=== PATIENT | female | born 1985 | race Caucasian/White ===

== ENCOUNTER 2021-11-30 09:01 | Emergency (ER) | payer OTHER, SELFPAY ==
[2021-11-30 09:11] VITALS: BP 135/80; PULSE 78; RESP 14; TEMP 36.8; O2SAT 100; BMI 25.0
--- NOTE | 2021-11-30 09:35 | HMH.EDUTC ---
[facility] [place] Clinical Impression: Viral syndrome Disposition: Home, Self-Care Condition on Discharge: Good Instructions: DI for Viral Syndrome, Preventing the Spread of Coronavirus Discharge Instructions, DI for COVID-19 (Suspected or Confirmed ) Additional Instructions: Drink plenty of fluids. Take tylenol or ibuprofen for pain or fever. Take the medications as directed. Follow up with your regular doctor. GO TO THE ER FOR ANY WORSENING SYMPTOMS Quarantine until you know the results of your covid-19 test. If it is positive, the health department should call you and give you further instructions about your length of Quarantine and other things. Notify your school or workplace of your results and follow their instructions regarding return to work/school. The promethazine will make you drowsy, so don't drive or operate heavy machinery after taking it. Prescriptions: Ondansetron [Zofran 4mg ODT] 4 mg PO Q8HP PRN #20 tab PRN Reason: Nausea Transmission Status: Pending to [id number] Promethazine HCl [Phenergan 25mg tab] 25 mg PO Q6H PRN #20 tab PRN Reason: Nausea And Vomiting Transmission Status: Pending to [id number] Referrals: Ileana Hewitt [Primary Care Provider] - Forms: Work/School Release Time of Disposition: 10:01 Medical Decision Making - Medical Records Medical records reviewed: No: I reviewed the patient's medical records. - Jomar Inquiry Pt receiving controlled substance: No Vital Signs: 11/30/21 09:11 Temperature 98.2 F Temperature Source Oral Pulse Rate [Left] 78 Respiratory Rate 14 Blood Pressure [Right Arm] 135/80 Blood Pressure Mean [Right Arm] 98 02 Sat by Pulse Oximetry 100 - Lab Data Lab results reviewed: Yes: I reviewed the patient's lab results. Lab Results 11/30/21 09:25: Influenza Type A Ag Negative, Influenza Type B Ag Negative 11/30/21 09:25: Strep Scn Rapid [facility] Negative Orders (Tests/Meds): ED MEDICATIONS Discontinued Medications Generic Name Dose Route Start Last Admin Trade Name Freq PRN Reason Stop Dose Admin Ondansetron HCl 4 mg 11/30/21 09:24 11/30/21 09:25 Ondansetron 4mg Odt SL 11/30/21 09:25 4 mg ONCE ONE Administration ORDERS Category Date Time Status Covid-19 Nasal PCR ([facility]) Routine Lab 11/30/21 09:25 Ordered Strep Screen Confirmation Stat Micro 11/30/21 09:25 Received [facility] [place] HPI - General Stated complaint: chills, vomiting, diarrhea, h/a, muscle/body pain Time Seen by Provider: 11/30/21 09:35 Mode of Arrival: Ambulatory Source of Information: Patient Limitations: No Limitations Description of Symptoms (Recalled from Triage Doc. by RN): pt c/o a migraine, n/v/d, and chills since yesterday. HEENT Symptoms (Recalled from RN notes): No Resp Symptoms (Recalled from RN notes): No Skin Symptoms (Recalled from RN notes): No MS Symptoms (Recalled from RN notes): No Functional Status (Recalled from RN notes): wnl - History of Present Illness Provider Complaint: She states that she started feeling bad last night. She has had body aches, n/v/d, and generally feeling bad. She is a type 1 diabetic. She denies shortness of breath or significant cough. She has been vaccinated against covid-19 and influenza. She is a preschool education director. - Related Data Previous Rx's Medication Instructions Recorded Ondansetron [Zofran 4mg ODT] 4 mg PO Q8HP PRN #20 tab 11/30/21 Promethazine HCl [Phenergan 25mg 25 mg PO Q6H PRN #20 tab 11/30/21 tab] Allergies Allergy/AdvReac Type Severity Reaction Status Date / Time Sulfa (Sulfonamide Allergy Verified 11/30/21 09:23 Antibiotics) - Worker's Comp Is this a Worker's Comp case?: No [facility] History - Hepatitis A Screen Drug use history?: No High risk sexual behaviors?: No History of sexually transmitted infection?: No Currently employed?: No Childcare worker?: No Do you have indoor plumbing?: Yes Do you have el
[2021-11-30 09:42] LABS: UTC Strep Screen (Rapid) Negative (Negative)
[2021-11-30 09:43] LABS: UTC Influenza A Antigen Negative (Negative); UTC Influenza B Antigen Negative (Negative)
[2021-11-30 09:48] VITALS: BP 135/80; PULSE 78; RESP 14; TEMP 36.8
== END 2021-11-30 10:09 | disposition home or self-care (01) ==
PROVIDERS: Emergency Provider Nurse Practitioner Family; PCP Nurse Practitioner Family
DX: B34.9 Viral infection, unspecified (principal); Z20.822 Contact with and (suspected) exposure to COVID-19; E10.9 Type 1 diabetes mellitus without complications
CPT/HCPCS: 87804; 87880; 96372; 99202; C9803; G0463; U0003; U0005

== ENCOUNTER 2024-09-30 11:43 | Emergency (ER) | payer OTHER, SELFPAY ==
[2024-09-30 11:59] VITALS: BP 122/61; PULSE 99; RESP 20; TEMP 36.8; O2SAT 100; BMI 25.0
[2024-09-30 12:07] LABS: Apearance,Urine Clear (Clear); Bilirubin,Urine Negative (Negative); Blood, Urine Negative (Negative); Color,Urine Yellow (Yellow); Glucose,Urine (UA) Negative (Negative); Ketones,Urine 160 (Negative); PH,Urine 7.5 (5.0-8.5); Protein,Urine 1+ (Negative); UTC Leukocyte Esterase,Urine 3+ (Negative); UTC Nitrate,Urine Positive (Negative); Urobilinogen,Urine 1 EU/dl (0.2)
--- NOTE | 2024-09-30 12:07 | EXP.UTC ---
Discharge Plan Disposition Patient Disposition: Home, Self-Care Condition: Good Prescriptions Prescriptions: New cefdinir 300 mg capsule 300 mg PO BID Qty: 20 0RF phenazopyridine [Pyridium] 200 mg tablet 200 mg PO Q8H 2 Days Qty: 6 0RF No Action levothyroxine [Synthroid] 175 mcg tablet 175 mcg PO DAILY Patient Comments: TAKE 1 TABLET BY MOUTH ONCE DAILY (DME) Omnipod 5 G6 Pods (Gen 5) Cartridge See Rx Instructions .ROUTE .MEDSUPPLY Qty: 5 Rx Instructions: As directed Referrals Follow up/Referrals: Neida Alfred APRN [Primary Care Provider] - See instructions Activity Restrictions/Add. Instructions Additional Instructions/Restrictions: *Increase fluids. Water not Soda or Tea *Start antibiotic immediately and be sure to take as ordered for the FULL length of time although you should start to see improvement over the next 48 hours *Pyridium as needed Remember this medication will turn your urine . This is normal but it will stain what ever it gets on *You should not use Pyridium for more than 48 hours. If so , follow up with your primary physician to review urine culture and ensure that antibiotic is adequate for infection *Be SURE to follow up anytime for new or worsening symptoms with your family doctor. AND in 48 hours for urine culture results with your family doctor, if you do not have a doctor then you may call back to the [facility] for urine culture results and further treatment. We do recommend that you choose and establish care with a Primary Care Physician. ?AND follow up with them ?in 10-14 days to repeat UA to ensure infection is resolved and blood no longer present *Be sure to let your PCP know that we sent urine cultures from the [facility] so they can follow up to ensure that you area the on the correct antibiotic Call your doctor office and make appointment for 48 hours (2 days from today) ?to follow up and get the results of your urine culture and further treatment Follow up with your Family Doctor for recheck of urine Straight to ER if any life threatening symptoms Clinical Impressions Clinical Impression: UTI (urinary tract infection) Instructions Patient Instructions: DI for Urinary Tract Infection (UTI), Cefdinir, Phenazopyridine Print Language Print Language: [place] Discharge ED Provider: Lila Anand [facility] [place] H[place] General Stated complaint: fever, body aches, cough Mode of Arrival: Ambulatory Source of Information: Patient Time Seen by Provider: 09/30/24 12:18 Description of Symptoms (Recalled from Triage Doc. by RN): FEVER, BODY ACHES, COUHG AND POSSIBLE UTI HEENT Symptoms (Recalled from RN notes): Yes Resp Symptoms (Recalled from RN notes): Yes Skin Symptoms (Recalled from RN notes): No MS Symptoms (Recalled from RN notes): No Functional Status (Recalled from RN notes): WNL History of Present Illness Provider Complaint: Patient states that she has been having a little cough, states 2 days ago she had an achy like feeling in her lower back area and then she started having some burning with urination States last night she felt a little feverish and she was worried that she may have a UTI Related Data Home Medications ?Medication ?Instructions ?Recorded ?Confirmed insulin pump cart,automated,BT #5 ea 12/17/23 09/30/24 (Omnipod 5 G6 Pods (Gen 5) subcutaneous cartridge) levothyroxine 175 mcg tablet 175 mcg PO DAILY 12/17/23 09/30/24 (Synthroid) Previous Rx's ?Medication ?Instructions ?Recorded cefdinir 300 mg capsule 300 mg PO BID #20 caps 09/30/24 phenazopyridine 200 mg tablet 200 mg PO Q8H pain 2 days #6 tabs 09/30/24 (Pyridium) Allergies Allergy/AdvReac Type Severity Reaction Status Date / Time Sulfa (Sulfonamide Allergy Verified 04/15/24 12:57 Antibiotics) Worker's Comp Is this a Worker's Comp case?: No [facility] Disclaimer: The information contained in this section may have been updated after the patient was seen, as this information can be updated by other users. Medical History (Updated 09/30/24 @ 12:45 by Lila Anand APRN) History of impacted cerumen Pharyngitis Surgical History H/O section H/O thyroidectomy Social History Smoking Status: Never smoker alcohol intake: never current occupational status: employed Travel in the last 8 weeks: None ROS Obtained: Yes All systems reviewed & no additional complaints except as documented and Yes Systems reviewed as appropriate & no additional complaints except as documented Constitutional Constitutional: Reports system reviewed and no additional complaints, except as documented, Reports as per HPI, Denies chills, Denies fatigue, Reports fever(s) and Denies headache(s) Eyes Eyes: Reports system reviewed and no additional complaints, except as documented and Reports as per HPI ENT Ears, Nose, Mouth, and Throat: Reports system reviewed and no additional complaints, except as documented, Reports as per HPI and Denies headache(s) Cardiovascular Cardiovascular: Reports system reviewed and no additional complaints, except as documented and Reports as per HPI Respiratory Respiratory: Reports system reviewed and no additional complaints, except as documented and Reports as per HPI Gastrointestinal Gastrointestingal: Reports system reviewed and no additional complaints, except as documented and as per HPI; Denies abdominal pain, diarrhea, nausea or vomiting Genitourinary Female Genitourinary: Reports system reviewed and no additional complaints, except as documented, Reports as per HPI, Reports dysuria, Reports flank pain, Reports urinary frequency and Reports urinary urgency Musculoskeletal Musculoskeletal: Reports system reviewed and no additional complaints, except as documented and Reports as per HPI Integumentary/Breasts Skin/Breast: Reports system reviewed and no additional complaints, except as documented and Reports as per HPI Neurologic Neurologic: Denies headache(s) Endocrine Endocrine: Denies fatigue Physical Exam General General appearance: alert and in no apparent distress Eye Eye exam: Present normal appearance, PERRL and EOMI ENT ENT exam: Present normal exam, normal oropharynx, mucous membranes moist and TM's normal bilaterally Neck Neck exam: Present normal inspection Chest Chest inspection: Present normal inspection and symmetric chest wall rise Respiratory Respiratory exam: Present normal lung sounds bilaterally; Absent respiratory distress or wheezes Cardiovascular Cardiovascular exam: Present regular rate, normal rhythm and normal heart sounds Neurological Exam Neurological exam: Present alert, oriented X3 and normal gait Medical Decision Making Medical Records Screening: Per USPSTF and CDC recommendations, given the prevalence of disease in our region, it is our hospital?s policy to screen for HIV and viral Hepatitis for all patients aged 18 and over and those with ongoing risk factors. Jomar Inquiry Pt receiving controlled substance: No Jomar was queried for this patient: No Vital Signs: 09/30/24 11:59 Temperature 98.3 F Temperature Source Oral Pulse Rate [Left Radial] 99 H Respiratory Rate 20 Blood Pressure [Left Arm] 122/61 Blood Pressure Mean [Left Arm] 81 02 Sat by Pulse Oximetry 100 Lab Data Lab results reviewed: Yes I reviewed the patient's lab results. Orders (Tests/Meds): ORDERS Category Date Time Status Urine Culture Stat Micro 09/30/24 12:05 Ordered Medical Decision Narrative: Viewed patient ua results, patient wears a dexcom Blood sugars has been slightly elevated with highest 164 Patient states that she typically follows low carb diet but last night eat some lasagna Urine had ketones noted, denies vision changes, denies dry mouth, denies abdominal pain, nausea, vomiting states that she has burning with urination States that she did fast yesterday for hoahaoism, Discussed with patient and recommended to monitor blood sugars and follow up with PCP so they can recheck her urine discussed transfer to the ED and she will try medication and follow up with PCP
[2024-09-30 12:49] VITALS: BP 122/61; PULSE 99; RESP 20; TEMP 36.8
--- NOTE | 2024-10-02 18:46 | PC.NURSE ---
REVIEWED URINE CULTURE WITH Santiago GASPAR APRN. NO CHANGES NEEDED AT THIS TIME
== END 2024-09-30 12:50 | disposition home or self-care (01) ==
PROVIDERS: Emergency Provider Nurse Practitioner; PCP Nurse Practitioner Family
DX: N39.0 Urinary tract infection, site not specified (principal)
CPT/HCPCS: 81003; 87086; 87088; 87186; 99213; G0381

== ENCOUNTER 2024-10-22 16:02 | Emergency (ER) | payer OTHER, SELFPAY ==
[2024-10-22 16:19] LABS: Apearance,Urine Cloudy (Clear); Color,Urine Dark Yellow (Yellow)
[2024-10-22 16:20] LABS: Bilirubin,Urine Negative (Negative); Blood, Urine Negative (Negative); Glucose,Urine (UA) Negative (Negative); Ketones,Urine Negative (Negative); Protein,Urine Negative (Negative); UTC Leukocyte Esterase,Urine 2+ (Negative); UTC Nitrate,Urine Positive (Negative); Urobilinogen,Urine 0.2 EU/dl (0.2)
[2024-10-22 17:03] VITALS: BP 123/76; PULSE 71; RESP 19; TEMP 36.7; O2SAT 100; BMI 29.7
--- NOTE | 2024-10-22 17:09 | EXP.UTC ---
Discharge Plan Disposition Patient Disposition: Home, Self-Care Condition: Good Prescriptions Prescriptions: New phenazopyridine [Pyridium] 200 mg tablet 200 mg PO Q8H 2 Days Qty: 6 0RF ciprofloxacin HCl [Cipro] 500 mg tablet 500 mg PO BID 7 Days Qty: 14 0RF No Action levothyroxine [Synthroid] 175 mcg tablet 175 mcg PO DAILY Patient Comments: TAKE 1 TABLET BY MOUTH ONCE DAILY (DME) Omnipod 5 G6 Pods (Gen 5) Cartridge See Rx Instructions .ROUTE .MEDSUPPLY Qty: 5 Rx Instructions: As directed Referrals Follow up/Referrals: Neida Alfred APRN [Primary Care Provider] - See instructions Activity Restrictions/Add. Instructions Additional Instructions/Restrictions: Drink plenty of fluids. Take tylenol or ibuprofen for pain or fever. Take the medications as directed. Follow up with your regular doctor. GO TO THE ER FOR ANY WORSENING SYMPTOMS The pyridium will make your urine turn orange, this is an expected side effect. It will stain your clothes if it comes into contact with them. We will culture the urine. That will tell what bacteria is causing your infection and which antibiotics will treat it best.This test takes 3 days to complete. Clinical Impressions Clinical Impression: UTI (urinary tract infection) Qualifiers: Urinary tract infection type: site unspecified Hematuria presence: without hematuria Qualified Code(s): N39.0 - Urinary tract infection, site not specified Instructions Patient Instructions: Urinary Tract Infection, Urine Culture, DI for Urinary Tract Infection (UTI), Phenazopyridine, Ciprofloxacin Print Language Print Language: American Discharge ED Provider: Clint Johansen [facility] [place] General Stated complaint: Burning,frequence,painful urination Mode of Arrival: Ambulatory Source of Information: Patient Time Seen by Provider: 10/22/24 17:09 Description of Symptoms (Recalled from Triage Doc. by RN): UTI S/S HEENT Symptoms (Recalled from RN notes): No Resp Symptoms (Recalled from RN notes): No Skin Symptoms (Recalled from RN notes): No MS Symptoms (Recalled from RN notes): No Functional Status (Recalled from RN notes): WNL Related Data Home Medications ?Medication ?Instructions ?Recorded ?Confirmed insulin pump cart,automated,BT #5 ea 12/17/23 10/22/24 (Omnipod 5 G6 Pods (Gen 5) subcutaneous cartridge) levothyroxine 175 mcg tablet 175 mcg PO DAILY 12/17/23 10/22/24 (Synthroid) Previous Rx's ?Medication ?Instructions ?Recorded ciprofloxacin HCl 500 mg tablet 500 mg PO BID 7 days #14 tabs 10/22/24 (Cipro) phenazopyridine 200 mg tablet 200 mg PO Q8H 2 days #6 tabs 10/22/24 (Pyridium) Allergies Allergy/AdvReac Type Severity Reaction Status Date / Time Sulfa (Sulfonamide Allergy Verified 04/15/24 12:57 Antibiotics) Worker's Comp Is this a Worker's Comp case?: No [facility] Disclaimer: The information contained in this section may have been updated after the patient was seen, as this information can be updated by other users. Medical History (Updated 10/22/24 @ 17:20 by Clint Johansen APRN) History of impacted cerumen Pharyngitis Surgical History H/O section H/O thyroidectomy Social History Smoking Status: Never smoker alcohol intake: never current occupational status: employed Travel in the last 8 weeks: None ROS Obtained: Yes All systems reviewed & no additional complaints except as documented Constitutional Constitutional: Reports system reviewed and no additional complaints, except as documented, Denies chills and Denies fever(s) Eyes Eyes: Denies eye discharge ENT Ears, Nose, Mouth, and Throat: Denies dysphagia, Denies sore throat and Denies throat swelling Cardiovascular Cardiovascular: Denies chest pain and Denies dyspnea Respiratory Respiratory: Denies chest congestion, Denies cough and Denies dyspnea Gastrointestinal Gastrointestingal: Denies abdominal pain, constipation, diarrhea, dysphagia, nausea or vomiting Genitourinary Female Genitourinary: Reports as per HPI, Reports dysuria, Reports sexual dysfunction, Reports urinary frequency, Denies urinary incontinence and Reports urinary hesitancy Musculoskeletal Musculoskeletal: Denies arthralgias and Reports back pain Integumentary/Breasts Skin/Breast: Denies rash Neurologic Neurologic: Denies paresthesias Allergic/Immunologic Allergic/Immunologic: Denies throat swelling Physical Exam General General appearance: alert and in no apparent distress Head Head exam: atraumatic and normocephalic Eye Eye exam: Present normal appearance, PERRL and EOMI ENT ENT exam: Present normal exam, mucous membranes moist, TM's normal bilaterally and normal external ear exam Neck Neck exam: Present normal inspection, full ROM and trachea midline; Absent tenderness, meningismus or lymphadenopathy Chest Chest inspection: Present normal inspection and symmetric chest wall rise; Absent tenderness Respiratory Respiratory exam: Present normal lung sounds bilaterally; Absent respiratory distress, wheezes or stridor Cardiovascular Cardiovascular exam: Present regular rate, normal rhythm and normal heart sounds Abdominal Exam Abdominal exam: Present soft and normal bowel sounds; Absent distention, tenderness, guarding, rebound, rigidity, incision, psoas sign, obturator sign, heel tap sign, Farfan's sign, Rovsing's sign or tenderness at McBurney's Point Extremities Exam Extremities exam: Present normal inspection, full ROM and normal capillary refill; Absent tenderness, edema, joint swelling, calf tenderness or cyanosis Back Exam Back exam: Present normal inspection and full ROM; Absent tenderness, CVA tenderness (R) or CVA tenderness (L) Neurological Exam Neurological exam: Present alert, oriented X3 and normal gait Psychiatric Psychiatric exam: Present normal affect and normal mood Skin Skin exam: Present warm, dry, intact and normal color Lymphatic Lymphatic Findings: no adenopathy Medical Decision Making Medical Records Medical records reviewed: No I reviewed the patient's medical records. Screening: Per USPSTF and CDC recommendations, given the prevalence of disease in our region, it is our hospital?s policy to screen for HIV and viral Hepatitis for all patients aged 18 and over and those with ongoing risk factors. Jomar Inquiry Pt receiving controlled substance: No Vital Signs: 10/22/24 17:03 Temperature 98.1 F Temperature Source Oral Pulse Rate [Left Radial] 71 Respiratory Rate 19 Blood Pressure [Left Arm] 123/76 Blood Pressure Mean [Left Arm] 91 02 Sat by Pulse Oximetry 100 Lab Data Lab results reviewed: Yes I reviewed the patient's lab results. Lab Results 10/22/24 16:17: Urine Color Dark yellow, Urine Appearance Cloudy, Urine pH 7.0, Ur Specific Sieper 1.020, Urine Protein Negative, Urine Glucose (UA) Negative, Urine Ketones Negative, Urine Blood Negative, Urine Nitrate Positive A, Urine Bilirubin Negative, Urine Urobilinogen 0.2, Ur Leukocyte Esterase 2+ A Orders (Tests/Meds): ORDERS Category Date Time Status Urine Culture Stat Micro 10/22/24 16:10 Received
[2024-10-22 17:21] VITALS: BP 123/76; PULSE 71; RESP 19; TEMP 36.7
== END 2024-10-22 17:23 | disposition home or self-care (01) ==
PROVIDERS: Emergency Provider Nurse Practitioner Family; PCP Nurse Practitioner Family
DX: N39.0 Urinary tract infection, site not specified (principal)
CPT/HCPCS: 81003; 87086; 87088; 87186; 99213; G0381

== ENCOUNTER 2024-12-11 12:44 | Emergency (ER) | payer OTHER, SELFPAY ==
[2024-12-11 13:02] VITALS: BP 124/69; PULSE 105; RESP 18; TEMP 37.7; O2SAT 100; BMI 25.2
[2024-12-11 13:11] LABS: UTC Influenza A Antigen Negative (Negative); UTC Influenza B Antigen Negative (Negative)
--- NOTE | 2024-12-11 13:24 | ED_ITS ---
Discharge Plan Disposition Patient Disposition: Home, Self-Care Condition: Good Prescriptions Prescriptions: New cephalexin 500 mg tablet 500 mg PO BID 7 Days Qty: 14 0RF No Action levothyroxine [Synthroid] 175 mcg tablet 175 mcg PO DAILY Patient Comments: TAKE 1 TABLET BY MOUTH ONCE DAILY (DME) Omnipod 5 G6 Pods (Gen 5) Cartridge See Rx Instructions .ROUTE .MEDSUPPLY Qty: 5 Rx Instructions: As directed insulin aspart U-100 [Novolog U-100 Insulin aspart] 100 unit/mL Solution 5 unit SQ TID Referrals Follow up/Referrals: Nieda Villa PA [Primary Care Provider] - See instructions Activity Restrictions/Add. Instructions Additional Instructions/Restrictions: Increase fluids, water and not soda or tea. Can drink cranberry juice or cranberry extract. Wipe front to back Wear cotton underwear Empty bladder after intercourse Start antibiotics immediately and make sure you take the full course although you may start to see improvement over the next 48 hours. You can eat yogurt or take probiotics to decrease diarrhea or yeast infection caused by the antibiotic Be sure to follow-up anytime for new or worsening symptoms in 48 hours for wound urine culture results be sure to let you PCP no recent urine for culture so they can request records and ensure that you have appropriate antibiotic if you are not getting better or getting worse. If symptoms worsen or do not improve return or be seen in the ER. Follow-up with primary care this week. Clinical Impressions Clinical Impression: UTI (urinary tract infection) Instructions Patient Instructions: DI for Urinary Tract Infection (UTI) Print Language Print Language: Armenian Discharge ED Provider: Cass ([facility] HPI General Stated complaint: fever 100.9 chills ba nausea Mode of Arrival: Ambulatory Source of Information: Patient Time Seen by Provider: 12/11/24 13:24 Description of Symptoms (Recalled from Triage Doc. by RN): FEVER, BA, CHILLS, PICKENS HEENT Symptoms (Recalled from RN notes): Yes Resp Symptoms (Recalled from RN notes): No Skin Symptoms (Recalled from RN notes): No MS Symptoms (Recalled from RN notes): No Functional Status (Recalled from RN notes): WNL History of Present Illness Provider Complaint: 39-year-old female presents for fever, body aches, chills and headache for 2 days. Patient states she has no congestion no runny nose and no other symptoms. Patient states the only other time she felt like this was when she had a UTI but at this time has no UTI symptoms. Related Data Home Medications ?Medication ?Instructions ?Recorded ?Confirmed insulin pump cart,automated,BT #5 ea 12/17/23 12/11/24 (Omnipod 5 G6 Pods (Gen 5) subcutaneous cartridge) levothyroxine 175 mcg tablet 175 mcg PO DAILY 12/17/23 12/11/24 (Synthroid) insulin aspart U-100 100 unit/mL 5 unit SQ TID 12/11/24 12/11/24 subcutaneous solution (Novolog U-100 Insulin aspart) Previous Rx's ?Medication ?Instructions ?Recorded cephalexin 500 mg tablet 500 mg PO BID 7 days #14 tabs 12/11/24 Allergies Allergy/AdvReac Type Severity Reaction Status Date / Time Sulfa (Sulfonamide Allergy Verified 04/15/24 12:57 Antibiotics) Worker's Comp Is this a Worker's Comp case?: No [facility] Disclaimer: The information contained in this section may have been updated after the patient was seen, as this information can be updated by other users. Medical History , LONG TERM ACUTE CARE REGISTERED NURSE) History of impacted cerumen Pharyngitis Surgical History , LONG TERM ACUTE CARE REGISTERED NURSE) H/O section H/O thyroidectomy Social History , LONG TERM ACUTE CARE REGISTERED NURSE) Smoking Status: Never smoker alcohol intake: never current occupational status: employed Travel in the last 8 weeks: None Have you lived/traveled outside [place] in past 30 days?: No Contact w/someone who lives/traveled outside US past 30 days?: Yes Exposure to someone with infectious disease in past 14 days?: No Do you have a fever (greater than 100.4 F or 38 C)?: Yes Have you tested positive for COVID-19: No Exposed to someone with COVID-19 in past 14 days?: No Do you have a sore throat?: No Do you have a cough?: No Do you have any weakness?: No Do you have any diarrhea?: No Are you experiencing any unusual bleeding?: No Do you have any muscle aches/pain?: No Do you have any abdominal pain?: No Are you experiencing loss of taste or smell?: No ROS Obtained: Yes Systems reviewed as appropriate & no additional complaints except as documented Constitutional Constitutional: Reports system reviewed and no additional complaints, except as documented, Reports as per HPI, Reports body ache, Reports chills, Reports fatigue, Reports fever(s) and Reports headache(s) ENT Ears, Nose, Mouth, and Throat: Reports headache(s) Neurologic Neurologic: Reports headache(s) Endocrine Endocrine: Reports fatigue Physical Exam General General appearance: alert and in no apparent distress ENT ENT exam: Present normal exam, normal oropharynx, mucous membranes moist and TM's normal bilaterally Respiratory Respiratory exam: Present normal lung sounds bilaterally Cardiovascular Cardiovascular exam: Present regular rate and normal rhythm Abdominal Exam Abdominal exam: Present soft and normal bowel sounds Neurological Exam Neurological exam: Present alert and oriented X3 Skin Skin exam: Present warm and intact Lymphatic Lymphatic Findings: no adenopathy Medical Decision Making Medical Records Medical records reviewed: Yes I reviewed the patient's medical records. Screening: Per USPSTF and CDC recommendations, given the prevalence of disease in our region, it is our hospital?s policy to screen for HIV and viral Hepatitis for all patients aged 18 and over and those with ongoing risk factors. Jomar Inquiry Pt receiving controlled substance: No Jomar was queried for this patient: No Vital Signs: 12/11/24 13:02 Temperature 99.8 F H Temperature Source Oral Pulse Rate [Left Radial] 105 H Respiratory Rate 18 Blood Pressure [Left Arm] 124/69 Blood Pressure Mean [Left Arm] 87 02 Sat by Pulse Oximetry 100 Lab Data Lab results reviewed: Yes I reviewed the patient's lab results. Lab Results 12/11/24 13:05: Influenza Type A Ag Negative, Influenza Type B Ag Negative
[2024-12-11 13:43] LABS: Apearance,Urine Cloudy (Clear); Color,Urine Dark Yellow (Yellow); Glucose,Urine (UA) Negative (Negative); Ketones,Urine TRACE (Negative); Protein,Urine Trace (Negative)
[2024-12-11 13:44] LABS: Microscopic, Urine URINE MICROSCOPIC (MICROSCOPIC)
[2024-12-11 13:44] LABS: Bilirubin,Urine Negative (Negative); Blood, Urine Trace (Negative); UTC Leukocyte Esterase,Urine 3+ (Negative); UTC Nitrate,Urine Positive (Negative); Urobilinogen,Urine 0.2 EU/dl (0.2)
[2024-12-11 13:45] VITALS: BP 124/69; PULSE 105; RESP 18; TEMP 37.7
[2024-12-11 13:47] LABS: Appearance,Urine SL CLOUDY (Clear); Bilirubin,Urine Negative (Negative); Blood, Urine TRACE-I (Negative); Color,Urine YELLOW (Yellow); Glucose,Urine (UA) Negative (Negative); Ketones,Urine 3+ (Negative); Leukocyte Esterase,Urine 1+ (Negative); Nitrate,Urine POSITIVE (Negative); Protein,Urine Negative (Negative); Specific Gravity, Urine 1.025 (1.005-1.030); Urobilinogen,Urine 0.2 EU/dl (0.2)
[2024-12-11 13:58] LABS: Bacteria,Urine 2+ /lpf
--- NOTE | 2024-12-17 19:58 | PC.NURSE ---
REVIEWED PATIENT'S URINE CULTURE. PATIENT CURRENTLY ON KEFLEX, NO CHANGES NEEDED AT THIS TIME
== END 2024-12-11 13:48 | disposition home or self-care (01) ==
PROVIDERS: Emergency Provider Nurse Practitioner Family; PCP Physician Assistant
DX: N30.00 Acute cystitis without hematuria (principal)
CPT/HCPCS: 81001; 81003; 87086; 87088; 87186; 87804; 99212; G0381

== ENCOUNTER 2025-01-25 00:39 | Emergency (ER) | payer OTHER, SELFPAY ==
[2025-01-25 00:47] VITALS: BP 154/82; PULSE 107; RESP 20; TEMP 37.6; O2SAT 99; BMI 25.0
--- NOTE | 2025-01-25 00:52 | HMH.EDGENADL ---
Discharge Plan Disposition Patient Disposition: Home, Self-Care Condition: Good Prescriptions Prescriptions: New cefdinir 300 mg capsule 300 mg PO BID 10 Days Qty: 20 0RF ondansetron 4 mg tablet,disintegrating 4 mg PO Q6H PRN (Reason: nausea and vomiting) Qty: 10 0RF No Action levothyroxine [Synthroid] 175 mcg tablet 175 mcg PO DAILY Patient Comments: TAKE 1 TABLET BY MOUTH ONCE DAILY (DME) Omnipod 5 G6 Pods (Gen 5) Cartridge See Rx Instructions .ROUTE .MEDSUPPLY Qty: 5 Rx Instructions: As directed insulin aspart U-100 [Novolog U-100 Insulin aspart] 100 unit/mL Solution 5 unit SQ TID cephalexin 500 mg tablet 500 mg PO BID 7 Days Qty: 14 0RF Referrals Follow up/Referrals: Neida Villa PA [Primary Care Provider] - See instructions Activity Restrictions/Add. Instructions Additional Instructions/Restrictions: You were evaluated in the ER and are appropriate for discharge at this time. Continue all your home medications as previously prescribed. Take the prescribed antibiotics as directed, do not skip doses, do not stop taking them early. Take the prescribed ondansetron (Zofran) if needed for nausea. Drink plenty of fluids including water, Gatorade, Pedialyte. Follow-up with your primary care doctor in 2 to 3 days for reevaluation. Return to the ER with any new, worsening, or otherwise concerning symptoms. Clinical Impressions Clinical Impression: Urinary tract infection, Pyelonephritis Instructions Patient Instructions: DI for Low Back Pain Print Language Print Language: Citizen Of [place] Discharge ED Provider: Alirio Silverio General Adult HPI General Chief complaint: Back Pain/Injury Stated complaint: back pain, poss uti Time Seen by Provider: 01/25/25 00:45 Mode of Arrival: Ambulatory Source of Information: Patient Description of Symptoms (Recalled from ER Triage Doc. by RN): low back pain vomiting and feels feverish History of Present Illness HPI narrative: 39-year-old female type I diabetic with history of UTIs presents to the ER with low back pain, nausea, she also had 2 episodes of nonbloody, nonbilious emesis earlier today. Patient reports she had some mild dysuria and urgency a few days ago and has been taking Azo, she also thought her urine was cloudy but this seems to have cleared up. She developed back pain yesterday but it was significantly worse today in her bilateral low back muscles. She states she has had good control of her diabetes and has not been in DKA in a very long time and states this does not feel like DKA. She denies headache, dizziness, numbness, tingling, weakness, chest pain, difficulty breathing, cough, congestion, or other associated symptoms. She uses insulin for control of her diabetes. Related Data Home Medications ?Medication ?Instructions ?Recorded ?Confirmed insulin pump cart,automated,BT #5 ea 12/17/23 12/11/24 (Omnipod 5 G6 Pods (Gen 5) subcutaneous cartridge) levothyroxine 175 mcg tablet 175 mcg PO DAILY 12/17/23 12/11/24 (Synthroid) insulin aspart U-100 100 unit/mL 5 unit SQ TID 12/11/24 12/11/24 subcutaneous solution (Novolog U-100 Insulin aspart) Previous Rx's ?Medication ?Instructions ?Recorded cephalexin 500 mg tablet 500 mg PO BID 7 days #14 tabs 12/11/24 cefdinir 300 mg capsule 300 mg PO BID 10 days #20 caps 01/25/25 ondansetron 4 mg disintegrating 4 mg PO Q6H PRN nausea and 01/25/25 tablet vomiting #10 tabs Allergies Allergy/AdvReac Type Severity Reaction Status Date / Time Sulfa (Sulfonamide Allergy Verified 04/15/24 12:57 Antibiotics) [facility] Disclaimer: The information contained in this section may have been updated after the patient was seen, as this information can be updated by other users. 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) H/O section H/O thyroidectomy Social History , [employer]ATOR) Smoking Status: Never smoker alcohol intake: never current occupational status: employed Travel in the last 8 weeks: None Have you lived/traveled outside US in past 30 days?: No Contact w/someone who lives/traveled outside US past 30 days?: No Exposure to someone with infectious disease in past 14 days?: No Do you have a fever (greater than 100.4 F or 38 C)?: No Have you tested positive for COVID-19: No Exposed to someone with COVID-19 in past 14 days?: No Do you have a sore throat?: No Do you have a cough?: No Do you have any weakness?: No Do you have any diarrhea?: No Are you experiencing any unusual bleeding?: No Do you have any muscle aches/pain?: Yes Do you have any abdominal pain?: No Are you experiencing loss of taste or smell?: No ROS Obtained: Yes Systems reviewed as appropriate & no additional complaints except as documented Per HPI Physical Exam General General appearance: alert and in no apparent distress Head Head exam: atraumatic and normocephalic Eye Eye exam: Present PERRL and EOMI ENT ENT exam: Present mucous membranes moist Neck Neck exam: Present normal inspection and full ROM Chest Chest inspection: Present symmetric chest wall rise Respiratory Respiratory exam: Present normal lung sounds bilaterally; Absent respiratory distress, wheezes or stridor Cardiovascular Cardiovascular exam: Present regular rate and normal rhythm Abdominal Exam Abdominal exam: Present soft; Absent distention or tenderness Extremities Exam Extremities exam: Present full ROM Back Exam Back exam: Present other (Lumbar paraspinal muscle tenderness without evidence of injury, no midline tenderness); Absent CVA tenderness (R) or CVA tenderness (L) Neurological Exam Neurological exam: Present alert, oriented X3 and normal gait; Absent motor sensory deficit Psychiatric Psychiatric exam: Present normal affect and normal mood Skin Skin exam: Present warm and dry Medical Decision Making Medical Records Medical records reviewed: Yes I reviewed the patient's medical records. Screening: Per USPSTF and CDC recommendations, given the prevalence of disease in our region, it is our hospital?s policy to screen for HIV and viral Hepatitis for all patients aged 18 and over and those with ongoing risk factors. MR Comment: Patient was evaluated in [facility] in November and diagnosed with urinary tract infection, discharged on Keflex. Review of UA demonstrates she had positive leukocyte esterase, nitrate positive, 10-20 WBCs at that time. Her urine culture grew widely sensitive E. coli. Jomar Inquiry Pt receiving controlled substance: No Vital Signs: 01/25/25 00:47 Temperature 99.6 F Temperature Source Oral Pulse Rate [Right Brachial] 107 H Respiratory Rate 20 Blood Pressure [Right Arm] 154/82 H Blood Pressure Mean [Right Arm] 106 Blood Pressure Source [Right Arm] Automatic Cuff Blood Pressure Position [Right Arm] Sitting 02 Sat by Pulse Oximetry 99 Oxygen Delivery Method Room Air Lab Data Lab Results 01/25/25 00:40: Urine Color Yellow, Urine Appearance Cloudy, Urine pH 7.5, Ur Specific [place] 1.020, Urine Protein 1+ A, Urine Glucose (UA) 2+, Urine Ketones Negative, Urine Blood Trace A, Urine Nitrate Positive A, Urine Bilirubin Negative, Urine Urobilinogen 0.2, Ur Leukocyte Esterase 3+ A, Urine RBC 5-10, Urine WBC 20-50, Ur Squamous Epith Cells 5-10, Urine Bacteria 4+, Urine Mucus 1+, Urine HCG, Qual Negative 01/25/25 00:49: VBG pH 7.39, VBG pCO2 40.6, VBG pO2 48.2 H, VBG HCO3 24.0, VBG Total CO2 25.3, VBG O2 Saturation 83.1 H, VBG Base Excess -0.9, VBG Lactic Acid 1.1 01/25/25 00:55: WBC 7.2, RBC 3.98 L, Hgb 10.2 L, Hct 32.7 L, MCV 82.2, MCH 25.6 L, MCHC 31.2 L, RDW 14.0, Plt Count 304, MPV 10.0, Neut % (Auto) 78.9, Lymph % (Auto) 15.6, [place] % (Auto) 2.1, Eos % (Auto) 2.6, Baso % (Auto) 0.7, Neut # (Auto) 5.7, Lymph # (Auto) 1.1, [place] # (Auto) 0.2, Eos # (Auto) 0.2, Baso # (Auto) 0.1, Sodium 140, Potassium 4.7, Chloride 107, Carbon Dioxide 26, Anion Gap 11.7, BUN 15, Creatinine 0.60, Estimated Creat Clear 147, Estimated GFR 111, Est GFR ( Amer) 134, Glucose 81, Lactate 1.2, Calcium 8.8, Total Bilirubin 0.8, AST 55 H, ALT 33, Alkaline Phosphatase 64, Total Protein 7.6, Albumin 4.6, Globulin 3.0, Albumin/Globulin Ratio 1.5, Acetone Level None detected 01/25/25 01:02: SARS-CoV-2 (PCR) Not detected, Influenza A Untype (PCR) Not detected, Influenza Type B (PCR) Not detected 01/25/25 00:55 01/25/25 00:55 Orders (Tests/Meds): ED MEDICATIONS Discontinued Medications Generic Name Dose Route Start Last Admin Trade Name Freq PRN Reason Stop Dose Admin Cefdinir 300 mg 01/25/25 01:20 01/25/25 01:24 Cefdinir 300mg Capsule PO 01/25/25 01:21 300 mg ONCE ONE Administration Lactated Ringer's 1,000 mls @ 999 mls/hr 01/25/25 00:49 01/25/25 01:04 Lactated Ringer's 1000 Ml Bag IV 01/25/25 01:49 999 mls/hr .Q1H1M ONE Administration Ondansetron HCl 4 mg 01/25/25 00:49 01/25/25 01:04 Ondansetron 4mg/2ml Vial IV 01/25/25 00:50 4 mg ONCE ONE Administration ORDERS Category Date Time Status Acetone, Serum (Rapid) Stat Lab 01/25/25 00:55 Completed CBC w/Auto Diff [Complete Blood Count Auto Diff] Stat Lab 01/25/25 00:55 Completed CMP [Comprehensive Metabolic Panel] Stat Lab 01/25/25 00:55 Completed HIV Combo Routine Lab 01/25/25 00:55 Received Hepatitis C Ab Qual. W/ RFX Routine Lab 01/25/25 00:55 Received Lactic Acid Stat Lab 01/25/25 00:55 Completed Rapid PCR Covid and Flu A/B Stat Lab 01/25/25 01:02 Completed Urinalysis and Microscopic Stat Lab 01/25/25 00:40 Completed Urine , HCG Qual. Stat Lab 01/25/25 00:40 Completed Urine Culture Stat Micro 01/25/25 00:40 Received VBG [Venous Blood Gas] Stat RT 01/25/25 00:49 Completed Medical Decision Narrative: In summary, this 39-year-old female with comorbidities described in the HPI which increases the amount of data to be reviewed as well as the overall morbidity presents to the emergency department today with low back pain, nausea with 2 episodes of emesis earlier today but no active abdominal pain or other associated symptoms. On initial evaluation patient is hemodynamically stable, afebrile, physical exam demonstrates normal cardiopulmonary findings, benign abdomen, patient has mild lumbar paraspinal tenderness without evidence of injury, no midline tenderness, patient does not have any CVA tenderness. Differential diagnosis includes but is not limited to urinary tract infection, pyelonephritis, also considered possibility of COVID or influenza and additionally with patient's emesis and being a type I diabetic that does increase my concern for possible early DKA, electrolyte abnormalities.. Based on these concerns, I ordered serum labs, urine studies, viral swab. Patient is receiving IV fluids and Zofran initially for treatment of symptoms. Labs personally reviewed demonstrates no leukocytosis, anemia with hemoglobin 10.2 is nonactionable, platelets normal, VBG with pH normal, lactic normal, bicarb normal, CMP nonactionable with good kidney function, UA positive for findings of infection including leukocyte esterase, elevated WBCs, bacteria, nitrite positive. Acetone negative. In the setting of other labs very reassuring against DKA. COVID and flu negative. With patient's positive findings for UTI and her symptoms, she was treated with cefdinir. This has also been prescribed to her. She is appropriate for discharge at this time. She is resting comfortably, hemodynamically stable and remains afebrile. Though she likely has early pyelonephritis she does not exhibit systemic signs of illness otherwise and her labs are reassuring. I believe she is appropriate for outpatient management. I also prescribed Zofran for management of nausea and vomiting. Patient was given instructions on symptomatic management, follow up instructions, and return precautions for the emergency department. Patient indicated understanding and was discharged in stable condition. Critical Care Critical Care Time Critical Care Time: No
[2025-01-25 00:56] LABS: Microscopic, Urine URINE MICROSCOPIC (MICROSCOPIC)
[2025-01-25] MEDS: ONDANSETRON 4MG/2ML VIAL 4 MG IV (01:04)
[2025-01-25] MEDS: LACTATED RINGERS 1000ML 1,000 ML 999 ML IV (01:04)
[2025-01-25 01:10] LABS: Coronavirus 19, PCR Not Detected (NotDetected); Influenza A, PCR Not Detected (NotDetected); Influenza B, PCR Not Detected (NotDetected)
[2025-01-25 01:11] LABS: Urine Pregnancy, HCG Qual. Negative (Negative)
[2025-01-25 01:12] LABS: Appearance,Urine Cloudy (Clear); Bilirubin,Urine Negative (Negative); Blood, Urine Trace (Negative); Color,Urine Yellow (Yellow); Glucose,Urine (UA) 2+ (Negative); Ketones,Urine Negative (Negative); Leukocyte Esterase,Urine 3+ (Negative); Nitrate,Urine POSITIVE (Negative); PH,Urine 7.5 (5.0-8.5); Protein,Urine 1+ (Negative); Urobilinogen,Urine 0.2 EU/dl (0.2)
[2025-01-25 01:15] LABS: Basophils # 0.1 K/mm3 (0-0.2); Basophils % 0.7 % (0.1-2.0); Eosinophils # 0.2 K/mm3 (0.0-0.4); Eosinophils % 2.6 % (0.1-12.0); Hematocrit 32.7 % (37.0-47.0); Hemoglobin 10.2 g/dL (12.2-16.2); Lymphocytes # 1.1 K/mm3 (0.7-4.5); Lymphocytes % 15.6 % (10-50); Mean Corpuscular HGB Conc 31.2 g/dL (31.8-35.4); Mean Corpuscular Hemoglobin 25.6 pg (27.0-31.2); Mean Corpuscular Volume 82.2 fl (81-99); Monocytes # 0.2 K/mm3 (0.1-1.0); Monocytes % 2.1 % (1.7-9.3); Neutrophils # 5.7 K/mm3 (1.8-7.8); Neutrophils % 78.9 % (37.0-80.0); Platelet Count 304 K/mm3 (142-424); Red Blood Count 3.98 M/mm3 (4.20-5.40); White Blood Count 7.2 K/mm3 (4.8-10.8)
[2025-01-25 01:15] LABS: Lactate Venous 1.1 mmol/L (0.4-2.0); VBG Base Excess -0.9 mmol/L (-2.4-2.3); VBG Oxygen Saturation 83.1 % (50-70); VBG PCO2 40.6 mmol/L (35-51); VBG PH 7.39 mmol/L (7.31-7.41); VBG PO2 48.2 mmol/L (28-40); VBG Total CO2 25.3 mmol/L (23-27)
--- NOTE | 2025-01-25 01:20 | PC.NURSE ---
provider at the bedside
[2025-01-25] MEDS: CEFDINIR 300MG CAPSULE 300 MG PO (01:24)
--- NOTE | 2025-01-25 01:26 | PC.NURSE ---
lights dimmed for pt comfort.
[2025-01-25 01:27] LABS: Bacteria,Urine 4+ /lpf; Mucus,Urine 1+ /lpf; WBC,Urine 20-50 #/hpf (0-3)
[2025-01-25 01:28] LABS: Acetone, Serum (Rapid) None Detected (None Detect); Albumin Level 4.6 g/dl (3.5-5.0); Chloride 107 mmol/L (98-107); Potassium 4.7 mmoL/L (3.5-5.1); Sodium 140 mmol/L (136-145)
[2025-01-25 01:30] LABS: Blood Urea Nitrogen 15 mg/dl (7-17); Creatinine Clearance Estimated 147 mL/min (50-200); Estimated Glomerular Filt Rate 111 ml/min (>60); GFR (African American) 134 ML/MIN (>60)
[2025-01-25 01:31] LABS: Alanine Aminotransferase 33 U/L (12-78); Albumin/Globulin Ratio 1.5 (1.1-1.8); Alkaline Phosphatase 64 U/L (38-126); Anion Gap 11.7 mEq/L (5-15); Aspartate Amino Transferase 55 U/L (14-36); Bilirubin,Total 0.8 mg/dl (0.2-1.3); Calcium 8.8 mg/dl (8.4-10.2); Carbon Dioxide 26 mmol/L (22.0-30.0); Glucose 81 mg/dl (74-100); Total Protein,Serum 7.6 g/dl (6.3-8.2)
[2025-01-25 01:32] LABS: Lactic Acid 1.2 mmol/L (0.7-2.1)
[2025-01-25 01:59] VITALS: BP 154/82; PULSE 90; RESP 18; TEMP 37.6; O2SAT 97
[2025-01-25 02:21] LABS: Hepatitis C Ab Qual. W/ RFX NEGATIVE (Negative)
[2025-01-25 03:13] LABS: HIV Combo NEGATIVE (Negative)
--- NOTE | 2025-01-26 09:06 | PC.NURSE ---
URINE CULTURE DISCUSSED WITH DR AL, NO NEW ORDERS
== END 2025-01-25 02:00 | disposition home or self-care (01) ==
PROVIDERS: Emergency Provider Emergency Medicine; PCP Physician Assistant
DX: N12 Tubulo-interstitial nephritis, not specified as acute or chronic (principal); N39.0 Urinary tract infection, site not specified; M54.50 Low back pain, unspecified; R50.9 Fever, unspecified; R11.2 Nausea with vomiting, unspecified; R30.0 Dysuria
CPT/HCPCS: 80053; 81001; 81025; 82009; 82803; 83605; 85025; 86803; 87086; 87088; 87186; 87389; 87636; 96361; 96374; 99283; J2405; J7120

== ENCOUNTER 2025-06-13 16:12 | Outpatient (CLI) | payer BC, SELFPAY | END 2025-06-13 23:59 | disposition home or self-care (01) | PROVIDERS: PCP Nurse Practitioner Family; Visit Provider Nurse Practitioner Family | DX: R30.9 Painful micturition, unspecified (principal) | CPT/HCPCS: 87086; 87088; 87186 ==

== ENCOUNTER 2025-09-15 10:13 | Outpatient (CLI) | payer BC, SELFPAY ==
--- OUTSIDE RECORDS SUMMARY | 2025-09-19 10:21 | XMS_ITS | Data Portability ---
Author Organization [facility] Address [address] [place] [address] Assessment No assessment recorded. Plan of Treatment Reminders Order Date Submit Date Provider Last Modified By Organization Details Last Modified Time Details Appointments None recorded. Lab CMP, serum or plasma 2023 024 [facility], [address], Jose [place]on F, [place], [address], 4 08:29:29 lipid panel, serum 2023 024 [facility], [address], [place], [place], [address], 4 08:29:30 vitamin D, 25-hydroxy, total, serum 2023 024 [facility], [address], [place], [place], [address], 4 08:29:31 TSH + free T4, serum 2023 024 [facility], [address], [place], [place], [address], 4 08:29:28 T3, free, serum or plasma 2023 024 [facility], [address], [place], [place], [address], 4 08:29:32 glucose, fingerstick , blood 2023 024 [facility], [address] [facility] , [place], [address], 4 09:06:03 HbA1c (hemoglobin A1c), blood 2023 024 [facility], [address] [facility] , [place], [address], 4 09:06:04 CMP, serum or plasma 2022 023 [facility], [address], [place] F, [place], [address], 3 07:15:23 lipid panel, serum 2022 023 [facility], [address], [place], [place], [address], 3 07:15:24 vitamin D, 25-hydroxy, total, serum 2022 023 [facility], [address], [place], [place], [address], 3 07:15:25 TSH + free T4, serum 2022 023 [facility], [address], [place], [place], [address], 3 07:15:23 T3, free, serum or plasma 2022 023 [facility], [address], [place], [place], [address], 3 07:15:26 glucose, fingerstick , blood 2022 023 [facility], [address] [facility] , [place], [address], 3 11:57:47 HbA1c (hemoglobin A1c), blood 2022 023 [facility], [address] [place] [address] , [place], [address], 3 11:57:47 microalbumi n/creatinin e, mass ratio, urine 2022 023 [facility], [address] [place] [address] , [place], [address], 3 11:57:47 glucose, fingerstick , blood 2021 022 [facility], [address] [place] [address] , [place], [address], 2 17:22:32 HbA1c (hemoglobin A1c), blood 2021 022 [facility], [address] [place] [address] , [place], [address], 2 17:22:31 CMP, serum or plasma 2021 [facility], [address], Jose [place] F, [place], [address], 2 06:15:48 LDL, direct, serum 2021 [facility], [address], [place], [place], [address], 2 06:15:49 TSH + free T4, serum 2021 [facility], [address], [place], [place], [address], 2 06:15:46 T3, free, serum or plasma 2021 [facility], [address], [place] [address], [place], [address], 2 06:15:51 vitamin D, 25-hydroxy, total, serum 2021 [facility], [address], [place], [place], [address], 2 06:15:50 glucose, fingerstick , blood 2021 [facility], [address] [place] [address] , [place], [address], 2 17:13:36 HbA1c (hemoglobin A1c), blood 2021 [facility], [address] [place] [address] , [place], [address], 2 17:13:37 microalbumi n/creatinin e, mass ratio, urine 2021 [facility], [address] [place] [address] , [place], [address], 2 17:13:36 Referral outreach educator referral 2020 021 BONNIE [facility], [address] [place], [address], 08:36:52 Procedures None recorded. Surgeries None recorded. Imaging None recorded. Medication Orders cephalexin 500 mg capsule [address] [facility], [address] [place], [address], 17:08:26 Patient TargetsNo targets recorded. Patient Instructions Encounter Date Encounter Id Patient Instructions Last Modified By Organization Details Last Modified Time 11/28/2021 [id number] post-traumatic stress disorder (PTSD): care instructions [facility] Not available 11/28/2021 17:13:36 pump and meter download and interpretation* Not available 12/05/2021 11:55:26 glucose sensor download and interpretation* Not available 12/05/2021 11:55:26 learning about healthy weight rjessee Not available 11/28/2021 17:13:37 weight managemen t education rjessee Not available 11/28/2021 17:13:37 I increased the basal rate between 6 am and 9 pm by 10% and decreased it between 9 pm and midnight by 10% on your T-slim X 2 control IQ insulin pump. I also adjusted your daytime carb ratio and sensitivities. Continue to wear Dexcom G6 CGM. Schedule yourself for diabetic eye exam. We will call you with your lab results. I want to see you back in 3 months. rjessee Not available 11/28/2021 17:32:11 02/27/2022 [id number] medical record request* - please send me her last diabetic eye exam Not available 09/02/2022 15:56:46 post-traumatic stress disorder (PTSD): care instructions rjessee Not available 02/27/2022 17:22:32 learning about healthy weight rjessee Not available 02/27/2022 17:22:32 weight managemen t education rjessee Not available 02/27/2022 17:22:32 pump and meter download and interpretation* Not available 03/06/2022 07:28:48 glucose sensor download and interpretation* Not available 03/06/2022 07:28:48 I increased the basal rates between midnight and 3 am and between 9 pm and midnight by 10% on your T-slim X 2 control IQ insulin pump. Continue to wear Dexcom G6 CGM. Will send medical record request for your last diabetic eye exam. I want to see you back in 3 months. rjessee Not available 02/27/2022 17:24:47 05/01/2023 [id number] post-traumatic stress disorder (PTSD): care instructions rjessee Not available 05/01/2023 11:57:48 pump and meter download and interpretation* Not available 05/08/2023 07:20:52 glucose sensor download and interpretation* Not available 05/08/2023 07:20:52 learning about healthy weight rjessee Not available 05/01/2023 11:57:48 weight managemen t education rjessee Not available 05/01/2023 11:57:47 diabetes - pump troubleshooting education information rjessee Not available 05/01/2023 11:57:48 I changed the active insulin time from 4 hours down to 2.5 hours and I strengthened the carb ratio and sensitivity on your Omnipod gen 5 insulin pump. Continue to wear Dexcom G6 CGM. We will call you with your lab results and adjust your Synthroid dose if indicated. I want to see you back in 6 weeks. rjessee Not available 05/01/2023 12:00:22 03/29/2024 [id number] post-traumatic stress disorder (PTSD): care instructions rjessee Not available 03/29/2024 09:05:59 pump and meter download and interpretation* Not available 04/05/2024 09:38:19 glucose sensor download and interpretation* Not available 04/05/2024 09:38:19 learning about healthy weight rjessee Not available 03/29/2024 09:05:59 weight managemen t education rjessee Not available 03/29/2024 09:05:59 I didn't change any of the settings on your T-slim insulin pump. Continue to wear Dexcom G6 CGM. We will call you with your lab results and adjust your Synthroid dose if indicated. I want to see you back in 3 months. rjessee Not available 03/29/2024 09:09:28 Reason for Referral School Health Assistant Referral for Cell ulitis of foot Referring Physician: Laura Dumont, Family Medicine, Encounter Date: 05/24/2021 Results Created Date Observation Date Name Description Value Unit Range Abnormal Flag Note LastModifiedBy Organization Detail LastModifiedTime 11/28/19 22 11/29/2021 TSH+F REE T4 TSH 0.010 uIU/m L 0.450- 4.500 below low normal Not Available [facility] ([facility]) [address] [facility], [place], [address], 12/01/2021 06:15:46 11/28/19 22 11/29/2021 TSH+F REE T4 T4,free(dire ct) 1.99 NG/dL 0.82-1 .77 above high normal Not Available [facility] ([facility]) [address] [place], [address], 12/01/2021 06:15:46 11/28/19 22 11/29/2021 COMP. METAB OLIC PANEL (14) glucose 133 mg/dL 65-99 above high normal Not Available [facility] ([facility]) [address] [place], [address], 12/01/2021 06:15:47 11/28/19 22 11/29/2021 COMP. METAB OLIC PANEL (14) BUN 6 mg/dL 6-20 Not Available [facility] ([facility]) [address] [place], [address], 12/01/2021 06:15:47 11/28/19 22 11/29/2021 COMP. METAB OLIC PANEL (14) creatinine 0.69 mg/dL 0.57-1 .00 Not Available [facility] ([facility]) [address] [place], [address], 12/01/2021 06:15:47 11/28/19 22 11/29/2021 COMP. METAB OLIC PANEL (14) eGFR if nonafricn AM 112 mL/mi n/1.7 3 >59 Not Available [facility] ([facility]) [address] [place], [address], 12/01/2021 06:15:47 11/28/19 22 11/29/2021 COMP. METAB OLIC PANEL (14) eGFR if africn AM 129 mL/mi n/1.7 3 >59 In accor dance with recom menda tions from the NKF-A SN Task force , [facility] is in the proce ss of updat ing its eGFR calcu latio n to the 2020 CKD-E PI creat inine equat ion that estim ates kidne y funct ion witho ut a race varia ble. Not Available [facility] ([facility]) [address] [place], [address], 12/01/2021 06:15:47 11/28/19 22 11/29/2021 COMP. METAB OLIC PANEL (14) BUN/creatini ne ratio 9 9-23 Not Available [facility] ([facility]) [address] [place], [address], 12/01/2021 06:15:47 11/28/19 22 11/29/2021 COMP. METAB OLIC PANEL (14) sodium 139 mmol/ L 134-14 4 Not Available [facility] ([facility]) [address] [place], [address], 12/01/2021 06:15:47 11/28/19 22 11/29/2021 COMP. METAB OLIC PANEL (14) potassium 4.2 mmol/ L 3.5-5. 2 Not Available [facility] ([facility]) [address] [place], [address], 12/01/2021 06:15:47 11/28/19 22 11/29/2021 COMP. METAB OLIC PANEL (14) chloride 102 mmol/ L 96-106 Not Available [facility] ([facility]) [address] [place], [address], 12/01/2021 06:15:47 11/28/19 22 11/29/2021 COMP. METAB OLIC PANEL (14) carbon dioxide, total 24 mmol/ L 20-29 Not Available [facility] ([facility]) [address] [place], [address], 12/01/2021 06:15:47 11/28/19 22 11/29/2021 COMP. METAB OLIC PANEL (14) calcium 9.0 mg/dL 8.7-10 .2 Not Available [facility] ([place] [facility]) [address] [facility], [place], [address], 12/01/2021 06:15:47 11/28/19 22 11/29/2021 COMP. METAB OLIC PANEL (14) protein, total 7.5 g/dL 6.0-8. 5 Not Available [facility] ([facility]) [address] [facility], [place], [address], 12/01/2021 06:15:47 11/28/19 22 11/29/2021 COMP. METAB OLIC PANEL (14) albumin 4.3 g/dL 3.8-4. 8 Not Available [facility] ([facility]) [address] [facility], [place], [address], 12/01/2021 06:15:47 11/28/19 22 11/29/2021 COMP. METAB OLIC PANEL (14) globulin, total 3.2 g/dL 1.5-4. 5 Not Available [facility] ([facility]) [address] [facility] [place], [address], 12/01/2021 06:15:47 11/28/19 22 11/29/2021 COMP. METAB OLIC PANEL (14) A/G ratio 1.3 1.2-2. 2 Not Available [facility] ([facility]) [address] [facility] [place], [address], 12/01/2021 06:15:47 11/28/19 22 11/29/2021 COMP. METAB OLIC PANEL (14) bilirubin, total <0.2 mg/dL 0.0-1. 2 Not Available [facility] ([facility]) [address] [facility] [place], [address], 12/01/2021 06:15:47 11/28/19 22 11/29/2021 COMP. METAB OLIC PANEL (14) alkaline phosphatase 65 IU/L 44-121 Ple ase note refer ence inter magdiel christopher e Not Available [facility] ([facility]) [address] [facility], [place], [address], 12/01/2021 06:15:47 11/28/19 22 11/29/2021 COMP. METAB OLIC PANEL (14) AST (SGOT) 17 IU/L 0-40 Not Available [facility] ([facility]) [address] [facility] [place], [address], 12/01/2021 06:15:47 11/28/19 22 11/29/2021 COMP. METAB OLIC PANEL (14) ALT (SGPT) 12 IU/L 0-32 Not Available [facility] ([facility]) [address] [facility], [place], [address], 12/01/2021 06:15:47 11/28/19 22 11/29/2021 LDL VINCENT STERO L (DIRE CT) LDL chol. (direct) 85 mg/dL 0-99 Not Available [facility] ([facility]) [address] [facility], [place], [address], 12/01/2021 06:15:49 11/28/19 22 11/29/2021 LDL VINCENT STERO L (DIRE CT) comment: YEAST TENDER Not Available [facility] ([facility]) [address] [facility], [place], [address], 12/01/2021 06:15:49 11/28/19 22 12/01/2021 VITAM IN D, 25-HY DROXY vitamin D, 25-hydroxy 31.7 NG/mL 30.0-1 00.0 Vitam in D defic iency has been defin ed by the Insti tute of Medic ine and an Endoc rine Socie ty pract ice guide line as a level of serum 25-OH vitam in D less than 20 ng/mL (1,2) . The Endoc rine Socie ty went on to furth er defin e vitam in D insuf ficie ncy as a level betwe en 21 and 29 ng/mL (2). 1. IOM (Inst itute of Medic ine). 2010. Dieta ry refer ence perry es for calci um and D. Catherine bhardwaj DC: [facility] Press . 2. Marline samaniego MF, Bronwyn benítez [place], Bisch off-F errar i PICKENS, et al. Evalu ation , treat ment, and preve ntion of vitam in D defic iency : an Endoc rine Socie ty clini ra pract ice guide line. JCEM. 2010; 96(7) :1911 -30. Not Available [facility] ([facility]) [address] [facility], [place], [address], 12/01/2021 06:15:50 11/28/19 22 11/29/2021 TRIIO DOTHY MAYCO E (T3), FREE triiodothyro nine (T3), free 3.1 pg/mL 2.0-4. 4 Not Available [facility] ([facility]) [address] [facility], [place], [address], 12/01/2021 06:15:51 11/28/19 22 11/28/2021 HbA1c (hemo globi n A1c), blood HbA1C 8.3 % Not Available [address] , [place], [address], 11/28/2021 17:07:11 11/28/19 22 11/28/2021 micro album in/cr eatin ine, mass ratio , urine Microalbumin 10 mg/L Not Available [address] , [place], [address], 11/28/2021 17:08:27 11/28/19 22 11/28/2021 micro album in/cr eatin ine, mass ratio , urine Creatinine 50 mg/dL Not Available [address] , [place], [address], 11/28/2021 17:08:27 11/28/19 22 11/28/2021 micro album in/cr eatin ine, mass ratio , urine Ratio <30 mg/g normal Not Available [address] , [place], [address], 11/28/2021 17:08:27 11/28/19 22 11/28/2021 gluco se, finge rstic k, blood Blood Glucose: mg/dl 140 Not Available [address] , [place], [address], 11/28/2021 17:07:03 02/28/20 22 02/27/2022 HbA1c (hemo globi n A1c), blood HbA1C 8.3 % Not Available [address] , [place], [address], 02/27/2022 10:15:08 02/28/20 22 02/27/2022 gluco se, finge rstic k, blood Blood Glucose: mg/dl 316 Not Available [address] , [place], [address], 02/27/2022 10:15:07 05/01/20 23 05/02/2023 TSH+F REE T4 TSH 2.750 uIU/m L 0.450- 4.500 Not Available [facility] ([facility]) [address] [place], [address], 05/02/2023 07:15:23 05/01/20 23 05/02/2023 TSH+F REE T4 T4,free(dire ct) 0.94 NG/dL 0.82-1 .77 Not Available [facility] ([facility]) [address] [place], [address], 05/02/2023 07:15:23 05/01/20 23 05/02/2023 COMP. METAB OLIC PANEL (14) glucose 141 mg/dL 70-99 above high normal Not Available [facility] ([facility]) [address] [place], [address], 05/02/2023 07:15:23 05/01/20 23 05/02/2023 COMP. METAB OLIC PANEL (14) BUN 9 mg/dL 6-20 Not Available [facility] ([facility]) [address] [place], [address], 05/02/2023 07:15:23 05/01/20 23 05/02/2023 COMP. METAB OLIC PANEL (14) creatinine 0.74 mg/dL 0.57-1 .00 Not Available [facility] ([facility]) [address] [facility] [place], [address], 05/02/2023 07:15:23 05/01/20 23 05/02/2023 COMP. METAB OLIC PANEL (14) eGFR 105 mL/mi n/1.7 3 >59 Not Available [facility] ([facility]) [address] [place], [address], 05/02/2023 07:15:23 05/01/20 23 05/02/2023 COMP. METAB OLIC PANEL (14) BUN/creatini ne ratio 12 9-23 Not Available [facility] ([facility]) [address] [place], [address], 05/02/2023 07:15:23 05/01/20 23 05/02/2023 COMP. METAB OLIC PANEL (14) sodium 138 mmol/ L 134-14 4 Not Available [facility] ([facility]) [address] [place], [address], 05/02/2023 07:15:23 05/01/20 23 05/02/2023 COMP. METAB OLIC PANEL (14) potassium 5.0 mmol/ L 3.5-5. 2 Not Available [facility] ([facility]) [address] [place], [address], 05/02/2023 07:15:23 05/01/20 23 05/02/2023 COMP. METAB OLIC PANEL (14) chloride 104 mmol/ L 96-106 Not Available [facility] ([facility]) [address] [place], [address], 05/02/2023 07:15:23 05/01/20 23 05/02/2023 COMP. METAB OLIC PANEL (14) carbon dioxide, total 21 mmol/ L 20-29 Not Available [facility] ([facility]) [address] [place], [address], 05/02/2023 07:15:23 05/01/20 23 05/02/2023 COMP. METAB OLIC PANEL (14) calcium 9.3 mg/dL 8.7-10 .2 Not Available [facility] ([facility]) [address] [place], [address], 05/02/2023 07:15:23 05/01/20 23 05/02/2023 COMP. METAB OLIC PANEL (14) protein, total 7.4 g/dL 6.0-8. 5 Not Available [facility] ([facility]) [address] [place], [address], 05/02/2023 07:15:23 05/01/20 23 05/02/2023 COMP. METAB OLIC PANEL (14) albumin 4.2 g/dL 3.8-4. 8 Not Available [facility] ([facility]) [address] [place], [address], 05/02/2023 07:15:23 05/01/20 23 05/02/2023 COMP. METAB OLIC PANEL (14) globulin, total 3.2 g/dL 1.5-4. 5 Not Available [facility] ([place] [facility]) [address] [place], [address], 05/02/2023 07:15:23 05/01/20 23 05/02/2023 COMP. METAB OLIC PANEL (14) A/G ratio 1.3 1.2-2. 2 Not Available [facility] ([facility]) [address] [facility] [place], [address], 05/02/2023 07:15:23 05/01/20 23 05/02/2023 COMP. METAB OLIC PANEL (14) bilirubin, total 0.2 mg/dL 0.0-1. 2 Not Available [facility] ([facility]) [address] [facility] [place], [address], 05/02/2023 07:15:23 05/01/20 23 05/02/2023 COMP. METAB OLIC PANEL (14) alkaline phosphatase 73 IU/L 44-121 Not Available [facility] ([facility]) [address] [place], [address], 05/02/2023 07:15:23 05/01/20 23 05/02/2023 COMP. METAB OLIC PANEL (14) AST (SGOT) 22 IU/L 0-40 Not Available [facility] ([facility]) [address] [place], [address], 05/02/2023 07:15:23 05/01/20 23 05/02/2023 COMP. METAB OLIC PANEL (14) ALT (SGPT) 14 IU/L 0-32 Not Available [facility] ([facility]) [address] [place], [address], 05/02/2023 07:15:23 05/01/20 23 05/02/2023 LIPID PANEL cholesterol, total 183 mg/dL 100-19 9 Not Available [facility] ([facility]) [address] [place], [address], 05/02/2023 07:15:24 05/01/20 23 05/02/2023 LIPID PANEL triglyceride s 53 mg/dL 0-149 Not Available [facility] ([facility]) [address] [place], [address], 05/02/2023 07:15:24 05/01/20 23 05/02/2023 LIPID PANEL HDL cholesterol 71 mg/dL >39 Not Available [facility] ([facility]) [address] [place], [address], 05/02/2023 07:15:24 05/01/20 23 05/02/2023 LIPID PANEL VLDL cholesterol ra 10 mg/dL 5-40 Not Available [facility] ([facility]) [address] [place], [address], 05/02/2023 07:15:24 05/01/20 23 05/02/2023 LIPID PANEL LDL chol calc ([facility]) 102 mg/dL 0-99 above high normal Not Available [facility] ([facility]) [address] [place], [address], 05/02/2023 07:15:24 05/01/20 23 05/02/2023 LIPID PANEL comment: YEAST TENDER Not Available [facility] ([facility]) [address] [place], [address], 05/02/2023 07:15:24 05/01/20 23 05/02/2023 VITAM IN D, 25-HY DROXY vitamin D, 25-hydroxy 37.7 NG/mL 30.0-1 00.0 Vitam in D defic iency has been defin ed by the Insti tute of Medic ine and an Endoc rine Socie ty pract ice guide line as a level of serum 25-OH vitam in D less than 20 ng/mL (1,2) . The Endoc rine Socie ty went on to furth er defin e vitam in D insuf ficie ncy as a level betwe en 21 and 29 ng/mL (2). 1. IOM (Inst itute of Medic ine). 2010. Dieta ry refer ence intak es for calci um and D. Catherine bhardwaj DC: [facility] Press . 2. Marline samaniego MF, Bronwyn benítez [place], [place] off-F oliver i PICKENS, et al. Evalu ation , treat ment, and preve ntion of vitam in D defic iency : an Endoc rine Socie ty clini ra pract ice guide line. JCEM. 2010; 96(7) :1911 -30. Not Available [facility] ([facility]) [address] [facility], [place], [address], 05/02/2023 07:15:25 05/01/20 23 05/02/2023 TRIIO DOTHY MAYCO E (T3), FREE triiodothyro nine (T3), free 1.8 pg/mL 2.0-4. 4 below low normal Not Available [facility] ([facility]) [address] [facility], [place], [address], 05/02/2023 07:15:25 05/01/20 23 05/01/2023 HbA1c (hemo globi n A1c), blood HbA1C 11.6 % Not Available [address] , [place], [address], 05/01/2023 09:58:00 05/01/20 23 05/01/2023 gluco se, finge rstic k, blood Blood Glucose: mg/dl 183 Not Available [address] , [place], [address], 05/01/2023 09:58:00 05/01/20 23 05/01/2023 micro album in/cr eatin ine, mass ratio , urine Microalbumin 10 mg/L Not Available [address] , [place], [address], 05/01/2023 11:44:25 05/01/20 23 05/01/2023 micro album in/cr eatin ine, mass ratio , urine Creatinine 50 mg/dL Not Available [address] , [place], [address], 05/01/2023 11:44:25 05/01/20 23 05/01/2023 micro album in/cr eatin ine, mass ratio , urine Ratio <30 mg/g normal Not Available [address] , [place], [address], 05/01/2023 11:44:25 03/29/20 24 03/30/2024 TSH+F REE T4 TSH 0.017 uIU/m L 0.450- 4.500 below low normal Not Available [facility] ([facility]) [address] [place], [address], 03/30/2024 08:29:28 03/29/20 24 03/30/2024 TSH+F REE T4 T4,free(dire ct) 1.76 NG/dL 0.82-1 .77 Not Available [facility] ([facility]) [address] [place], [address], 03/30/2024 08:29:28 03/29/20 24 03/30/2024 COMP. METAB OLIC PANEL (14) glucose 143 mg/dL 70-99 above high normal Not Available [facility] ([facility]) [address] [place], [address], 03/30/2024 08:29:29 03/29/20 24 03/30/2024 COMP. METAB OLIC PANEL (14) BUN 16 mg/dL 6-24 Not Available [facility] ([facility]) [address] [place], [address], 03/30/2024 08:29:29 03/29/20 24 03/30/2024 COMP. METAB OLIC PANEL (14) creatinine 0.71 mg/dL 0.57-1 .00 Not Available [facility] ([place] [facility]) [address] [place], [place], [address], 03/30/2024 08:29:29 03/29/20 24 03/30/2024 COMP. METAB OLIC PANEL (14) eGFR 110 mL/mi n/1.7 3 >59 Not Available [facility] ([facility]) [address] [place], [address], 03/30/2024 08:29:29 03/29/20 24 03/30/2024 COMP. METAB OLIC PANEL (14) BUN/creatini ne ratio 23 9-23 Not Available [facility] ([facility]) [address] [place], [address], 03/30/2024 08:29:29 03/29/20 24 03/30/2024 COMP. METAB OLIC PANEL (14) sodium 139 mmol/ L 134-14 4 Not Available [facility] ([facility]) [address] [place], [address], 03/30/2024 08:29:29 03/29/20 24 03/30/2024 COMP. METAB OLIC PANEL (14) potassium 4.9 mmol/ L 3.5-5. 2 Not Available [facility] ([facility]) [address] [place], [address], 03/30/2024 08:29:29 03/29/20 24 03/30/2024 COMP. METAB OLIC PANEL (14) chloride 105 mmol/ L 96-106 Not Available [facility] ([place] [facility]) [address] [place], [address], 03/30/2024 08:29:29 03/29/20 24 03/30/2024 COMP. METAB OLIC PANEL (14) carbon dioxide, total 22 mmol/ L 20-29 Not Available [facility] ([place] [facility]) [address] [place], [address], 03/30/2024 08:29:29 03/29/20 24 03/30/2024 COMP. METAB OLIC PANEL (14) calcium 9.0 mg/dL 8.7-10 .2 Not Available [facility] ([facility]) [address] [facility], [place], [id number], 03/30/2024 08:29:29 03/29/20 24 03/30/2024 COMP. METAB OLIC PANEL (14) protein, total 7.0 g/dL 6.0-8. 5 Not Available [facility] ([facility]) [address] [facility] [place], [id number], 03/30/2024 08:29:29 03/29/20 24 03/30/2024 COMP. METAB OLIC PANEL (14) albumin 4.1 g/dL 3.9-4. 9 Not Available [facility] ([facility]) [address] [facility] [place], [address], 03/30/2024 08:29:29 03/29/20 24 03/30/2024 COMP. METAB OLIC PANEL (14) globulin, total 2.9 g/dL 1.5-4. 5 Not Available [facility] ([facility]) [address] [facility] [place], [address], 03/30/2024 08:29:29 03/29/20 24 03/30/2024 COMP. METAB OLIC PANEL (14) A/G ratio 1.4 1.2-2. 2 Not Available [facility] ([facility]) [address] [facility], [place], [address], 03/30/2024 08:29:29 03/29/20 24 03/30/2024 COMP. METAB OLIC PANEL (14) bilirubin, total <0.2 mg/dL 0.0-1. 2 Not Available [facility] ([facility]) [address] [facility] [place], [address], 03/30/2024 08:29:29 03/29/20 24 03/30/2024 COMP. METAB OLIC PANEL (14) alkaline phosphatase 66 IU/L 44-121 Not Available [facility] ([facility]) [address] [facility] [place], [address], 03/30/2024 08:29:29 03/29/20 24 03/30/2024 COMP. METAB OLIC PANEL (14) AST (SGOT) 24 IU/L 0-40 Not Available [facility] ([facility]) [address] [place], [address], 03/30/2024 08:29:29 03/29/20 24 03/30/2024 COMP. METAB OLIC PANEL (14) ALT (SGPT) 15 IU/L 0-32 Not Available [facility] ([facility]) [address] [facility] [place], [address], 03/30/2024 08:29:29 03/29/20 24 03/30/2024 LIPID PANEL cholesterol, total 160 mg/dL 100-19 9 Not Available [facility] ([facility]) [address] [facility] [place], [address], 03/30/2024 08:29:30 03/29/20 24 03/30/2024 LIPID PANEL triglyceride s 69 mg/dL 0-149 Not Available [facility] ([facility]) [address] [facility] [place], [address], 03/30/2024 08:29:30 03/29/20 24 03/30/2024 LIPID PANEL HDL cholesterol 71 mg/dL >39 Not Available [facility] ([facility]) [address] [facility] [place], [address], 03/30/2024 08:29:30 03/29/20 24 03/30/2024 LIPID PANEL VLDL cholesterol ra 13 mg/dL 5-40 Not Available [facility] ([facility]) [address] [facility], [place], [address], 03/30/2024 08:29:30 03/29/20 24 03/30/2024 LIPID PANEL LDL chol calc ([facility]) 76 mg/dL 0-99 Not Available [facility] ([facility]) [address] [facility], [place], [address], 03/30/2024 08:29:30 03/29/20 24 03/30/2024 LIPID PANEL comment: YEAST TENDER Not Available [facility] ([facility]) [address] [facility], [place], [address], 03/30/2024 08:29:30 03/29/20 24 03/30/2024 VITAM IN D, 25-HY DROXY vitamin D, 25-hydroxy 29.6 NG/mL 30.0-1 00.0 below low normal Vitam in D defic iency has been defin ed by the Insti tute of Medic ine and an Endoc rine Socie ty pract ice guide line as a level of serum 25-OH vitam in D less than 20 ng/mL (1,2) . The Endoc rine Socie ty went on to furth er defin e vitam in D insuf ficie ncy as a level betwe en 21 and 29 ng/mL (2). 1. IOM (Inst itute of Medic ine). 2009. Dieta ry refer ence intak es for calci um and D. Catherine bhardwaj [place]: [employer] [facility] [employer] . 2. Marline samaniego MF, Bronwyn benítez [place], [place] PICK[place], et al. Evalu ation , treat ment, and preve ntion of vitam in D defic iency : an Endoc rine Socie ty clini ra pract ice guide line. JCEM. 2010; 96(7) :1911 -30. Not Available [facility] ([facility]) [address] [facility], [place], [address], 03/30/2024 08:29:31 03/29/20 24 03/30/2024 TRIIO DOTHY MAYCO E (T3), FREE triiodothyro nine (T3), free 3.0 pg/mL 2.0-4. 4 Not Available [facility] ([facility]) [address], [place], [address], 03/30/2024 08:29:32 03/29/20 24 03/29/2024 HbA1c (hemo globi n A1c), blood HbA1C 9.1 % Not Available [address] , [place], [address], 03/28/2024 18:30:33 03/29/20 24 03/29/2024 gluco se, finge rsmarina k, blood Blood Glucose: mg/dl 183 Not Available [address] , [place], [address], 03/28/2024 18:30:33 Result Notes None recorded. Problems Name Problem SNOMED Code Status Onset Date Resolution Date Notes Provider Name and Address Organization Details Recorded Time Type 1 diabetes mellitus 80742959 Active Natasha Jenkins null, [place] - [facility] 7 15:27:17 Hypothyroid ism 51687009 Active Natasha Jenkins null, [place] - [facility] 15:27:27 COVID-19 703516562 Active 2019 Germaine wilks MD [address], [place], [address], [place] - [facility] 0 16:11:07 Acquired hypothyroid ism 828978129 Active 2020 Ileana Hewitt APRN [address], [place], [address], [place] - [facility] 1 18:09:51 Mixed hyperlipide lucretia 947841820 Active 2020 Ileana Hewitt APRN [address], [place], [address], [place] - [facility] 1 18:09:53 Vitamin D deficiency 96080794 Active 2020 Ileana Hewitt, [employer] [address], [place], [address], [place] - [facility] 18:09:54 Insulin pump present 143320497 Active 2020 Ileana Hewitt, [employer] [address], [place], [address], [place] - [facility] 18:10:04 Hyperglycem ia due to type 1 diabetes mellitus 7822548394772 01 Active 2020 Ileana Hewitt, [employer] [address], [place], [address], [place] - [facility] 18:10:12 Peripheral neuropathy due to type 1 diabetes mellitus 2762906243048 4 Active 2020 Ileana Hewitt, [employer] [address], [place], [address], [place] - [facility] 18:10:18 Postoperati ve hypothyroid ism 63634442 Active 2020 Ileana Hewitt, [employer] [address], [place], [address], [place] - [facility] 18:14:17 Problem Notes None recorded. Procedures Surgical History Date Name Laterality Status Provider Name and Address Organization Details Recorded Time 03/29/20 24 A1C level 9.1 and above completed Natasha 71lbs - [facility] 03/29/2024 09:00:00 05/01/20 23 Negative Microalbumin completed Natasha 71lbs - [facility] 05/01/2023 11:44:17 05/01/20 23 A1C level 9.1 and above completed Natasha 71lbs - [facility] 05/01/2023 11:46:21 02/28/20 22 A1C level 8.0 to 9.0 completed Natasha 71lbs - [facility] 02/27/2022 17:12:02 11/28/19 22 Negative Microalbumin completed Natasha 71lbs - [facility] 11/28/2021 17:06:47 11/28/19 22 A1C level 8.0 to 9.0 completed Natasha 71lbs - [facility] 11/28/2021 17:11:27 01/18/20 21 Diastolic B/P less than 80 mm Hg completed Natasha Jenkins [place] - [facility] 01/17/2021 15:24:08 01/18/20 21 Systolic B/P 130-139 mm Hg completed Natasha Jenkins [place] - [facility] 01/17/2021 15:24:11 01/18/20 21 A1C level 9.1 and above completed Natasha Jenkins [place] - [facility] 01/17/2021 15:26:48 10/06/20 19 A1C level 8.0 to 9.0 completed Natasha Jenkins [place] - [facility] 10/06/2019 17:21:21 08/24/20 19 Positive Microalbumin completed Natasha REMY - [facility] 08/24/2019 16:35:51 10/02/20 17 Dexcom Placement completed Adelina Maurisio [place] - [facility] 10/02/2017 17:03:33 Thyroidectomy completed Natasha REMY - [facility] 09/16/2017 15:31:48 Ear Tubes - Tympanostomy Tubes completed Natasha REMY - [facility] 09/16/2017 15:31:57 delivery completed Natasha REMY - [facility] 09/16/2017 15:32:11 Imaging Results None recorded. Procedure Notes None recorded. Medical Equipment None Reported. Allergies Allergen ID Allergen Name Allergen Category Reaction Reaction Severity Criticality Documentation Date Start Date Code Code System Note Provider Name and Address Organization Details Recorded Time 29694 Substance with sulfonami de structure and antibacte rial mechanism of action (substanc e) medicatio n Not available Not available Not available 09/16/2017 45727 8003 SNOMED rash Natasha Jenkins null, [place] - [facility] 15:19:31 Medications Name Sig Start Date Stop Date Status Note LastModified by Organization Details LastModified Time Prescriptio n - Renewal 03/29 completed Not Available Not Available Not Available Prescriptio n - Change 01/17 completed Not Available Not Available Not Available Prescriptio n - Prior Authorizati on Request 01/17 completed Not Available Not Available Not Available ipratropium 0.5 mg-albutero l 3 mg (2.5 mg base)/3 mL nebulizatio n soln Inhale 3 mL 4 times a day by nebulizat ion route. 01/17 completed Not Available Not Available Not Available azithromyci n 250 mg tablet TAKE 2 TABLETS (500 MG) BY ORAL ROUTE ONCE DAILY FOR 1 DAY THEN 1 TABLET (250 MG) BY ORAL ROUTE ONCE DAILY FOR 4 DAYS 01/17 completed Not Available Not Available Not Available Glucagon Emergency Kit 1 mg solution for injection Take 1 mg as needed by injection route. 2023 active Not Available Not Available Not Avai lable benzonatate 200 mg capsule TAKE 1 CAPSULE BY MOUTH TWICE DAILY FOR 5 DAYS 05/01 completed Not Available Not Available Not Available phenazopyri dine 200 mg tablet TAKE 1 TABLET BY MOUTH EVERY 8 HOURS FOR 2 DAYS active Not Available Not Available No t Available penicillin V potassium 500 mg tablet 03/29 completed Not Available Not Available Not Available ciprofloxac in 500 mg tablet TAKE 1 TABLET BY MOUTH TWICE DAILY FOR 7 DAYS active Not Available Not Available No t Available Synthroid 175 mcg tablet TAKE 1 TABLET BY MOUTH ONCE DAILY active Not Available Not Available No t Available cephalexin 500 mg capsule TAKE 1 CAPSULE BY MOUTH TWICE DAILY FOR 7 DAYS active Not Available Not Available No t Available mupirocin 2 % topical ointment APPLY OINTMENT TOPICALLY TO AFFECTED AREA THREE TIMES DAILY FOR 10 DAYS 03/29 completed Not Available Not Available Not Available Novolog U-100 Insulin aspart 100 unit/mL subcutaneou s solution INJECT INSULIN UNDER THE SKIN VIA INSULIN PUMP DIRECTED. MAXIMUM DAILY AMOUNT: 60 UNITS. active Not Available Not Available No t Available albuterol sulfate HFA 90 mcg/actuati on aerosol inhaler INHALE 2 PUFFS BY MOUTH EVERY 6 HOURS NEEDED active Not Available Not Available No t Available bromphenira mine-pseudo ephedrine-D M 2 mg-30 mg-10 mg/5 mL oral syrup TAKE 10 ML BY MOUTH EVERY 6 HOURS NEEDED FOR COUGH FOR 10 DAYS 03/29 completed Not Available Not Available Not Available ondansetron 4 mg disintegrat ing tablet DISSOLVE 1 TABLET IN MOUTH EVERY 6 HOURS NEEDED FOR NAUSEA AND VOMITING active Not Available Not Available No t Available cefdinir 300 mg capsule TAKE 1 CAPSULE BY MOUTH TWICE DAILY FOR 10 DAYS active Not Available Not Available No t Available doxycycline hyclate 100 mg tablet TAKE 1 TABLET BY MOUTH TWICE DAILY FOR 7 DAYS 03/29 completed Not Available Not Available Not Available Mucinex 600 mg tablet, extended release Take 1 tablet every 12 hours by oral route as needed. 01/17 completed Not Available Not Available Not Available nitrofurant oin monohydrate /macrocryst als 100 mg capsule TAKE 1 CAPSULE BY MOUTH EVERY 12 HOURS WITH FOOD active Not Available Not Available No t Available Vitamin D 2,000 unit capsule Take 1 capsule every day by oral route. active Not Available Not Available No t Available Vitamin D 5,000 unit tablet Take 1 tablet every day by oral route. 03/29 completed Not Available Not Available Not Available Omnipod Classic Pods (Gen 3) subcutaneou s cartridge CHANGE EVERY 2 DAYS 02/28 completed Not Available Not Available Not Available Omnipod Classic PDM Kit(Gen 3) as directed 02/28 completed Not Available Not Available Not Available Vitamin D3 50 mcg (2,000 unit) capsule Take 2 units every day by oral route as directed for 30 days. 08/24 completed Not Available Not Available Not Available Contour Next Test Strips Take 1 strip 4 times a day by miscell. route for 30 days. 2017 active Not Available Not Available Not Avai lable OneTouch Ultra Blue Test Strip checck blood sugar 6 time per day 06/16 completed Not Available Not Available Not Available Dexcom G6 Sensor device CHANGE EVERY 10 DAYS active Not Available Not Available No t Available Dexcom G6 Box Sealing Machine Catcher change 1 q yr active Not Available Not Available No t Available Dexcom G6 Transmitter device CHANGE EVERY 3 MONTHS active Not Available Not Available No t Available Baqsimi 3 mg/actuatio n nasal spray USE 1 SPRAY(S) IN THE NOSE NEEDED FOR HYPOGLYCE LUCRETIA active Not Available Not Available No t Available Omnipod 5 G6 Pods (Gen 5) subcutaneou s cartridge CHANGE POD EVERY 48 HOURS active Not Available Not Available No t Available Omnipod 5 G6 Intro Kit (Gen 5) subcutaneou s cartridge with controller as directed active Not Available Not Available No t Available Vitals Date Recorded Body height Body mass index (BMI) Body weight Body temperature Heart rate Oxygen saturation Oxygen saturation in Arterial blood by Pulse oximetry Respiratory rate Pain severity - 0-10 verbal numeric rating [Score] - Reported Systolic And Diastolic Provider Name and Address Organization Details Last Updated DateTime 2 172.72 cm 26.9 kg/m2 49246.5 5 g 98 [degF] 74 /min 99 % 99 % 16 /min 0 122/60 mm[Hg] Natasha Jenkins [place] - [facility] 2 17:04:12 Date Recorded Body height Body mass index (BMI) Body weight Body temperature Heart rate Oxygen saturation Oxygen saturation in Arterial blood by Pulse oximetry Respiratory rate Pain severity - 0-10 verbal numeric rating [Score] - Reported Systolic And Diastolic Provider Name and Address Organization Details Last Updated DateTime 2 172.72 cm 26.3 kg/m2 94164.8 8 g 98.4 [degF] 71 /min 97 % 97 % 16 /min 0 118/60 mm[Hg] Natasha Jenkins [place] - [facility] 2 17:08:09 Date Recorded Body height Body mass index (BMI) Body weight Body temperature Heart rate Oxygen saturation Oxygen saturation in Arterial blood by Pulse oximetry Respiratory rate Pain severity - 0-10 verbal numeric rating [Score] - Reported Systolic And Diastolic Provider Name and Address Organization Details Last Updated DateTime 4 172.72 cm 26.5 kg/m2 18438.0 7 g 98.3 [degF] 84 /min 99 % 99 % 16 /min 0 114/70 mm[Hg] Natasha Jenkins [place] - [facility] 4 08:56:11 Date Recorded Body height Body mass index (BMI) Body weight Body temperature Heart rate Oxygen saturation Oxygen saturation in Arterial blood by Pulse oximetry Respiratory rate Pain severity - 0-10 verbal numeric rating [Score] - Reported Systolic And Diastolic Provider Name and Address Organization Details Last Updated DateTime 3 172.72 cm 25.8 kg/m2 26818.9 1 g 98.4 [degF] 74 /min 99 % 99 % 16 /min 0 118/80 mm[Hg] Natasha Jenkins [place] - [facility] 3 11:41:49 Date Recorded Body height Body mass index (BMI) Body weight Body temperature Heart rate Oxygen saturation Oxygen saturation in Arterial blood by Pulse oximetry Respiratory rate Pain severity - 0-10 verbal numeric rating [Score] - Reported Systolic And Diastolic Provider Name and Address Organization Details Last Updated DateTime 1 172.72 cm 26.7 kg/m2 65101.4 6 g 97.7 [degF] 70 /min 99 % 99 % 16 /min 0 112/64 mm[Hg] Oxana Becker [place] - [facility] 11:13:01 Social History Question Answer Notes LastModified by Organizat ion Details LastModified Time Tobacco Smoking Status Never Smoker Natasha rothman, [place] - [facility] 09/16/2017 15:30:09 Able To Swim? Yes Information not available 09/16/2017 Do You Have An Advance Directive? No Information not available 09/16/2017 Do You Wear A Helmet When Biking? Yes Information not available 05/24/2021 Are You Blind Or Do You Have Difficulty Seeing? No Information not available 09/16/2017 What Is Your Level Of Caffeine Consumption? Heavy Information not available 05/24/2021 Are You Deaf Or Do You Have Serious Difficulty Hearing? No Information not available 09/16/2017 What Type Of Diet Are You Following? REGULAR Information not available 09/16/2017 Which Illicit Or Recreational Drugs Have You Used? None Information not available 09/16/2017 Swimming/diving No Informati on not available 09/16/2017 Hard Of Hearing Or Deaf In One Or Both Ears? No Information not available 09/16/2017 Legally Blind In One Or Both Eyes? No Information no t available 09/16/2017 Live Alone Or With Others? With Others Information not available 09/16/2017 What Was The Date Of Your Most Recent Tobacco Screening? 03/29/2024 Information not available 03/29/2024 How Many Children Do You Have? 2 Information not available 09/16/2017 Do You Use Protection During Sex? No Information not available 09/16/2017 What Is Your Relationship Status? Information not available 09/16/2017 Seat Belts Used Routinely Yes Information not available 09/16/2017 Are You Sexually Active? No Information not available 05/24/2021 Smoke Alarm In Home Yes Information not available 09/16/2017 General Stress Level Medium Information not available 09/16/2017 Do You Use Sunscreen Routinely? No Information not available 05/24/2021 Has Tobacco Cessation Counseling Been Provided? Yes Information not available 05/01/2023 On What Date Was Tobacco Cessation Counseling Provided? 03/29/2024 Information not available 03/29/2024 Do You Have Difficulty Walking Or Climbing Stairs? No Information not available 05/24/2021 Sex: Female Functional Status Question Answer Note LastModified by Organizat ion Details LastModified Time What is your level of alcohol consumption? None Information not available 09/16/2017 Are you currently employed? Yes Information not available 09/16/2017 Are you able to walk independently without assistance or assistive devices? YESWOREST Information not available 05/24/2021 Do you have difficulty doing errands alone? No Information not available 05/24/2021 Are you able to care for yourself independently? Yes Information not available 09/16/2017 What is your occupation? teacher Information not available 09/16/2017 Do you have difficulty dressing, bathing, grooming, or toileting? No Information not available 05/24/2021 Do you or have you ever used e-cigarettes or vape? Never used electronic cigarettes Information not available 10/06/2019 What is your exercise level? None Information not available 05/24/2021 Mental Status Question Answer Note LastModified by Organization D etails LastModified Time Do you have difficulty concentrating, remembering or making decisions? No Information no t available 05/24/2021 Family History Relationship Description Onset Age of this Age Resolved Age Notes LastModified by Organization Details LastModified Time Maternal Grandmother Type 2 diabetes mellitus Not available 06/2021 11:13:27 Maternal Grandfather Heart disease Not available 06/2021 11:13:27 Paternal Grandfather Family history of malignant neoplasm Not available 06/2021 11:13:27 Father Hypertensive disorder Not available 2016 15:29:05 Mother Graves' disease Not available 06/2021 11:13:27 Mother Hyperlipidem ia Not available 06/2021 11:13:27 Sister Goiter Not availab le 05/24/2021 11:13:27 Sister Malignant neoplasm of thyroid gland Not available 06/2021 11:13:27 Medical History Condition Response Hypothyroidism Y Diabetes Y Gynecological History Statement/Question Response Date of Last Pap Smear Date of LMP 02/27/2024 Obstetrics History GPAL:G 4 P 0 0 0 0 Immunizations Vaccine Type Date Status Note Provider Nam e and Address Organization Details Recorded Time Influenza, split virus, quadrivalent, preservative 7 completed Not Available Counts include 234 beds at the [facility] 12/04/2019 03:54:41 Influenza, split virus, quadrivalent, preservative 8 completed JONEL Fuller - [facility] 09/15/2018 17:34:49 Influenza, split virus, quadrivalent, preservative 9 completed Not Available Counts include 234 beds at the [facility] 12/04/2019 03:56:14 Past Encounters Encounter ID Performer Location Encounter Start Date Encounter Closed Date Diagnosis/Indication Diagnosis SNOMED-CT Code Diagnosis ICD10 Code Diagnosis IMO Codes Diagnosis Note [id number] Ileana Hewitt APRN [address] [place] [address] 09/16/2017 15:13:22 09/16/2017 16:40:16 Administration of influenza vaccine 01059763 Z23 Uncontroll ed type 1 diabetes mellitus 166475319 E10.65 Acquired hypothyroidism 166261990 E03.9 Mixed hyperlipidemia 267 473982 E78.2 Vitamin D deficiency 347 45909 E55.9 [id number] LOLLY KONG PHARMD [address] [place] [address] 10/02/2017 16:32:40 10/02/2017 17:03:00 [id number] LOLLY KONG PHARMD [address] [place] [address] 10/07/2017 17:00:21 10/07/2017 18:03:36 [id number] Ileana Hewitt [address] [place] [address] 12/10/2017 16:31:07 12/10/2017 17:42:14 Uncontrolled type 1 diabetes mellitus 160446477 E10.65 Acquired hypothyroidism 420987389 E03.9 Mixed hyperlipidemia 267 288000 E78.2 Vitamin D deficiency 347 85008 E55.9 [id number] Ileana Hewitt [address] [place] [address] 06/15/2018 15:39:16 06/15/2018 16:55:08 Uncontrolled type 1 diabetes mellitus 469012159 E10.65 Acquired hypothyroidism 974244897 E03.9 Mixed hyperlipidemia 267 641813 E78.2 Vitamin D deficiency 347 68899 E55.9 Renewal of prescription 698705415 Z76.0 [id number] Ileana Hewitt [address] [place] [address] 09/15/2018 17:17:11 09/15/2018 18:02:43 Uncontrolled type 1 diabetes mellitus 565883354 E10.65 Acquired hypothyroidism 188291504 E03.9 Mixed hyperlipidemia 267 916864 E78.2 Vitamin D deficiency 347 58146 E55.9 [id number] Ileana Hewitt [address] [place] [address] 11/04/2018 14:46:26 11/04/2018 15:42:32 Uncontrolled type 1 diabetes mellitus 893651214 E10.65 Acquired hypothyroidism 855355687 E03.9 Mixed hyperlipidemia 267 753489 E78.2 Vitamin D deficiency 347 85932 E55.9 Body mass index 25-29 - overweight 538655585 Z68.26 Insulin pump present 450 626664 Z96.41 Medical eq uipment or device education 117825638 Z46.81 [id number] Ileana Hewitt [address] [place] [address] 08/24/2019 16:21:34 08/24/2019 17:05:51 Type 1 diabetes mellitus 55198149 E10.65 Acute urin rashida tract infection 582138013 N39.0 Uncontroll ed type 1 diabetes mellitus 079865452 E10.65 Acquired hypothyroidism 367884116 E03.9 Mixed hyperlipidemia 267 514340 E78.2 Vitamin D deficiency 347 12278 E55.9 Body mass index 25-29 - overweight 594071098 Z68.25 Insulin pump present 450 291840 Z96.41 Medical eq uipment or device education 920660179 Z46.81 [id number] Ileana Hewitt APRN [address] [place] [address] 10/06/2019 17:03:53 10/06/2019 17:52:47 Administration of influenza vaccine 97867679 Z23 Acquired hypothyroidism 444746630 E03.9 Mixed hyperlipidemia 267 777858 E78.2 Vitamin D deficiency 347 51689 E55.9 Body mass index 25-29 - overweight 085549344 Z68.25 Insulin pump present 450 659745 Z96.41 Medical eq uipment or device education 943559962 Z46.81 Hyperglyce lucretia due to type 1 diabetes mellitus 2518529406 88653 E10.65 Pain of ri ght shoulder joint 1124172171 1384018 M25.511 Peripheral neuropathy due to type 1 diabetes mellitus 7235829346 9104 E10.40 [id number] Germaine fontanez MD [facility] [address] [place] [address] 10/02/2020 15:44:33 10/02/2020 16:53:22 Headache 27348541 R51.9 COVID-19 958768211 U07.1 quarantine instructio ns given to patient, patient voiced understand ing.pt instructed to increase fluid intake to decrease chances of dehydratio n, tylenol or ibuprofen for fever or body aches, if any sob or concerning symptoms please call the office [phone] Laura Dumont PA-C [facility] [address] [place] [address] [place] [address] 11/27/2020 15:50:36 11/27/2020 16:45:34 Cough 98167562 R05 [id number] Ileana Hewitt [address] [place] [address] 01/17/2021 15:06:39 01/17/2021 15:55:39 Mixed hyperlipidemia 178668072 E78.2 Vitamin D deficiency 347 89486 E55.9 Body mass index 25-29 - overweight 396139829 Z68.25 Insulin pump present 450 351772 Z96.41 Hyperglyce lucretia due to type 1 diabetes mellitus 5015903076 20358 E10.65 Peripheral neuropathy due to type 1 diabetes mellitus 7495403560 9104 E10.40 Hepatitis C screening 41 5472511 Z11.59 Postoperat indra hypothyroidism 27465382 E89.0 Screening for malignant neoplasm of cervix 262242457 Z12.4 Patient me dical record not available [id number] Z76.89 Post-traum atic stress disorder 64242321 F43.10 [id number] Ileana Hewitt [address] [place] [address] 02/28/2021 11:24:16 02/28/2021 12:58:54 Hyperglycemia due to type 1 diabetes mellitus 5245531822 34682 E10.65 Mixed hyperlipidemia 267 743760 E78.2 Vitamin D deficiency 347 28380 E55.9 Body mass index 25-29 - overweight 418330088 Z68.25 Insulin pump present 450 431831 Z96.41 Peripheral neuropathy due to type 1 diabetes mellitus 1021004696 9104 E10.40 Postoperat indra hypothyroidism 45549057 E89.0 Post-traum atic stress disorder 89575527 F43.10 [id number] Laura Dumont PA-C [facility] [address] [place] [address] [place] [address] 05/24/2021 11:05:25 05/24/2021 11:46:00 Cellulitis of foot [id number] L03.826 [id number] Ileana Hewitt [address] [place] [id number] 11/28/2021 16:26:11 11/28/2021 17:38:09 Hyperglycemia due to type 1 diabetes mellitus [id number] 40380 E10.65 Mixed hyperlipidemia 267 589230 E78.2 Vitamin D deficiency 347 97179 E55.9 Body mass index 25-29 - overweight 762596005 Z68.25 Insulin pump present 450 727202 Z96.41 Peripheral neuropathy due to type 1 diabetes mellitus [id number] 9104 E10.40 Postoperat indra hypothyroidism 12139503 E89.0 Post-traum atic stress disorder 29690914 F43.10 [id number] Ileana Hewitt [address] [place] [address] 02/27/2022 16:59:26 02/27/2022 17:25:49 Hyperglycemia due to type 1 diabetes mellitus [id number] 27349 E10.65 Peripheral neuropathy due to type 1 diabetes mellitus 8194026897 9104 E10.40 Insulin pump present 450 655381 Z96.41 Mixed hyperlipidemia 267 414540 E78.2 Vitamin D deficiency 347 26444 E55.9 Body mass index 25-29 - overweight 325695037 Z68.25 Postoperat nidra hypothyroidism 04288366 E89.0 Post-traum atic stress disorder 38454028 F43.10 Patient pa dical record not available [id number] Z76.89 [id number] Ileana Hewitt [address] [place] [id number] 05/01/2023 11:13:38 05/01/2023 12:06:04 Hyperglycemia due to type 1 diabetes mellitus [id number] 99868 E10.65 Peripheral neuropathy due to type 1 diabetes mellitus 8404318579 9104 E10.40 Insulin pump present 450 013272 Z96.41 Mixed hyperlipidemia 267 728169 E78.2 Vitamin D deficiency 347 64196 E55.9 Body mass index 25-29 - overweight 045795173 Z68.25 Postoperat indra hypothyroidism 74690278 E89.0 Post-traum atic stress disorder 61483115 F43.10 [id number] Ileana Hewitt [address] [place] [id number] 03/29/2024 08:37:01 03/29/2024 09:12:53 Hyperglycemia due to type 1 diabetes mellitus [id number] 65226 E10.65 Peripheral neuropathy due to type 1 diabetes mellitus 4735898169 9104 E10.40 Insulin pump present 450 254204 Z96.41 Mixed hyperlipidemia 267 446728 E78.2 Vitamin D deficiency 347 86380 E55.9 Body mass index 25-29 - overweight 459490814 Z68.26 Postoperat indra hypothyroidism 95096828 E89.0 Post-traum atic stress disorder 07048607 F43.10 Health Concerns Section Related Observation LastModified by Organization Detai ls LastModified Time None Recorded Concern Status LastModified by Organization Details LastModified Time None Recorded Advance Directives Directive N: Payers Insurance Date Sequence Insurance Name Policy Number Policy Lewis Covered Member ID Lewis Member ID Guarantor Name 07/18/2025 1 [id number] ([facility]) [id number] Sabrina Webb [id number] Sabrinasteven Webb Notes Date Note Type Note Provider Name and Address Organization Details Recorded Time 05/24/2021 text/html ROS as noted in the HPI Pt is a 36 yo female with type 1 DM who presents with a crack in the L heel. It has been present for a couple weeks and she has been doing home care. However, yesterday she noted red streaks from the wound. No fever. Laura Dumont PA-C [address], [place], [address], [place] - [facility] 05/24/2021 12:11:03 11/28/2021 text/html Sabrina presents for follow up on her type 1 diabetes. I haven't seen her since 02/28/2021. She is currently wearing T-slim X 2 Control IQ insulin pump along with Dexcom G6 CGM. In reviewing her downloads, her 14 day glucose average is 193 with less than 3% lows. Lowest are mainly occurring between 9 pm and midnight.Lowest 46 and highest 401. Average total daily insulin dose is 28.91. Her last hgb a1c was 10.3%. Today it is 8.3%. She checks her sugar 4 times a day. She boluses insulin at least 3 times a day and adjusts her insulin dose based on glucose readings. Past due for diabetic eye exam. She also has hypothyroidism and had total thyroidectomy November 2012. She is currently on Synthroid 175 mcg daily. No symptoms of over replacement. She has an appt. with Dr. Mauro next week. Her right great toenail apears bruised but she didn't injure it. It is also a little red around the nail. She is currently on her second course of antibiotics for this. Ileana Robertjaclyn Hewitt, RYNE [address], [place], [address], [facility] - [facility] 11/28/2021 17:37:35 02/27/2022 text/html Sabrina presents for 3 month follow up on her type 1 diabetes. She is currently wearing T-slim X 2 Control IQ insulin pump along with Dexcom G6 CGM. In reviewing her downloads, her 14 day glucose average is 200 with less than 1% lows. Her last hgb a1c was 8.3%. Today it is again 8.3%. She checks her sugar 4 times a day. She boluses insulin at least 3 times a day and adjusts her insulin dose based on glucose readings. She also has hypothyroidism and had total thyroidectomy November 2012. She is currently on Synthroid 175 mcg daily. No symptoms of over replacement. Ileana Robertjaclyn Hewitt, RYNE [address], [place], [address], [facility] - [facility] 02/27/2022 17:25:25 05/01/2023 text/html Sabrina presents for follow up on her type 1 diabetes. I haven't seen her for over a year. She is now wearing Omnipod gen 5 insulin pump along with Dexcom G6 CGM. In reviewing downloads, her 14 day glucose average is 264 . She is in automated mode 53% of the time. Her average daily dose of insulin is 21.7 units. Her last hgb a1c was 8.3%. Today it is 11.6%. Urine MALB today is normal. Last diabetic eye exam 01/2023 - no retinopathy per patient. She also has hypothyroidism and had total thyroidectomy November 2012. She is currently on Synthroid 175 mcg daily. No symptoms of over replacement. Has been without her Synthroid X 5 days. Ileana Hewitt, [employer] [address], [place], [address], [place] - [facility] 05/01/2023 12:01:58 03/29/2024 text/html Sabrina presents for follow up on her type 1 diabetes. I haven't seen her for almost a year. She is wearing T-slim pump with Dexcom G6 CGM. In reviewing downloads, her 14 day glucose average is 172 . Her average daily insulin usage is 25.39 units. She is in auto mode 98% of the time. She has only been back on the T-slim for a month and has noticed drastic improvement in her blood sugars. She still has Omnipod gen 5 pump which she only wears on vacation or when she is going to be swimming. She quit the Omnipod due to having difficulty getting her pods Her last hgb a1c was 11.6%. Today it is 9.1%. Last diabetic eye exam 05/01/2023 - no retinopathy per patient. She also has hypothyroidism and is s/p total thyroidectomy November 2012. She is currently on Synthroid 175 mcg daily. No symptoms of over replacement. Chronic issues reviewed and stable. Ileana Hewitt, [employer] [address], [place], [address], [place] - [facility] 03/29/2024 09:11:06 OBGyn Episode No OBEpisode recorded.
== END 2025-09-15 23:59 ==
LOC: LAB.DROPOF 09-19 10:14
PROVIDERS: PCP Nurse Practitioner Family; Visit Provider Student in an Organized Health Care Education/Training Program
DX: R35.0 Frequency of micturition (principal)
CPT/HCPCS: 87086; 87088; 87186

== ENCOUNTER 2025-09-27 14:05 | Outpatient (CLI) | payer BC, SELFPAY ==
[2025-09-27 14:32] LABS: Hematocrit 36.0 % (37.0-47.0); Hemoglobin 11.4 g/dL (12.2-16.2); Immature Granulocytes % 0.7 %; Mean Corpuscular HGB Conc 31.7 g/dL (31.8-35.4); Mean Corpuscular Hemoglobin 26.3 pg (27.0-31.2); Mean Corpuscular Volume 82.9 fl (81-99); Nucleated Red Blood Cells % 0 %; Platelet Count 297 K/mm3 (142-424); Red Blood Count 4.34 M/mm3 (4.20-5.40); Red Cell Distribution Width-SD 43.8 fL; White Blood Count 5.6 K/mm3 (4.8-10.8)
[2025-09-27 15:38] LABS: Alanine Aminotransferase 27 U/L (12-78); Albumin Level 4.6 g/dl (3.5-5.0); Albumin/Globulin Ratio 1.3 (1.1-1.8); Alkaline Phosphatase 77 U/L (38-126); Anion Gap 11.0 mEq/L (5-15); Aspartate Amino Transferase 39 U/L (14-36); Bilirubin,Total 0.7 mg/dl (0.2-1.3); Blood Urea Nitrogen 9 mg/dl (7-17); Calcium 9.2 mg/dl (8.4-10.2); Carbon Dioxide 27 mmol/L (22.0-30.0); Chloride 102 mmol/L (98-107); Cholesterol 159 mg/dl (140-200); Creatinine,Serum 0.70 mg/dl (0.52-1.04); Estimated Glomerular Filt Rate 92 ml/min (>60); GFR (African American) 112 ML/MIN (>60); Globulin 3.5 g/dL (1.3-3.2); Glucose 114 mg/dl (74-100); HDL Cholesterol 79 mg/dl (40-60); Potassium 4.0 mmoL/L (3.5-5.1); Sodium 136 mmol/L (136-145); Total Protein,Serum 8.1 g/dl (6.3-8.2); Triglycerides 46 mg/dl (30-150)
[2025-09-27 15:53] LABS: Free T4 (Free Thyroxine) 2.13 ng/dl (0.78-2.19)
[2025-09-27 16:07] LABS: Thyroid Stimulating Hormone < 0.02 uIU/mL (0.465-4.68)
[2025-09-27 16:20] LABS: Hemoglobin A1C 7.7 % (4.0-6.0)
== END 2025-09-27 23:59 | disposition home or self-care (01) ==
LOC: LAB 14:06
PROVIDERS: PCP Nurse Practitioner Family; Visit Provider Student in an Organized Health Care Education/Training Program
DX: E10.9 Type 1 diabetes mellitus without complications (principal)
CPT/HCPCS: 36415; 80053; 80061; 82043; 83036; 84439; 84443; 85025

== ENCOUNTER 2025-10-21 14:02 | Outpatient (CLI) | payer BC, SELFPAY ==
--- OUTSIDE RECORDS SUMMARY | 2025-10-23 14:04 | XMS_ITS | Data Portability ---
Author Organization [facility] Address [address] [place] [address] Assessment No assessment recorded. Plan of Treatment Reminders Order Date Submit Date Provider Last Modified By Organization Details Last Modified Time Details Appointments None recorded. Lab CMP, serum or plasma 2023 024 [facility], [address], Jose Ramon F, [place], [address], 4 08:29:29 lipid panel, serum 2023 024 [facility], [address], Jose [place] F, [place], [address], 4 08:29:30 vitamin D, 25-hydroxy, total, serum 2023 024 [facility], [address], [place] F, [place], [address], 4 08:29:31 TSH + free T4, serum 2023 024 [facility], [address], [place], [place], [address], 4 08:29:28 T3, free, serum or plasma 2023 024 [facility], [address], Jose [place] F, [place], [address], 4 08:29:32 glucose, fingerstick , blood 2023 024 [facility], [address] , [place], [address], 4 09:06:03 HbA1c (hemoglobin A1c), blood 2023 024 [facility], [address] , [place], [address], 4 09:06:04 CMP, serum or plasma 2022 023 [facility], [address], Jose [place] F, [place], [address], 3 07:15:23 lipid panel, serum 2022 023 [facility], [address], [place] F, [place], [address], 3 07:15:24 vitamin D, 25-hydroxy, total, serum 2022 023 [facility], [address], [place] F, [place], [address], 3 07:15:25 TSH + free T4, serum 2022 023 [facility], [address], [place] F, [place], [address], 3 07:15:23 T3, free, serum or plasma 2022 023 [facility], [address], Jose [place] F, [place], [address], 3 07:15:26 glucose, fingerstick , blood 2022 023 [facility], [address] , [place], [address], 3 11:57:47 HbA1c (hemoglobin A1c), blood 2022 023 [facility], [address] [place] [address] , [place], [address], 3 11:57:47 microalbumi n/creatinin e, mass ratio, urine 2022 023 [facility], [address] [place] [address] , [place], [address], 3 11:57:47 glucose, fingerstick , blood 2021 022 [facility], [address] [place] [address] , [place], [address], 2 17:22:32 HbA1c (hemoglobin A1c), blood 2021 022 [facility], [address] [place] [address] , [place], [address], 2 17:22:31 CMP, serum or plasma 2021 [facility], [address], Jose [place]on F, [place], [address], 2 06:15:48 LDL, direct, serum 2021 [facility], [address], Jose [place] F, [place], [address], 2 06:15:49 TSH + free T4, serum 2021 [facility], [address], [place] F, [place], [address], 2 06:15:46 T3, free, serum or plasma 2021 [facility], [address], Jose Ramon F, [place], [address], 2 06:15:51 vitamin D, 25-hydroxy, total, serum 2021 [facility], [address], Jose [place] F, [place], [address], 2 06:15:50 glucose, fingerstick , blood 2021 [facility], [address] [place] [address] , [place], [address], 2 17:13:36 HbA1c (hemoglobin A1c), blood 2021 [facility], [address] [place] [address] , [place], [address], 2 17:13:37 microalbumi n/creatinin e, mass ratio, urine 2021 [facility], [address] [place] [address] , [place], [address], 2 17:13:36 Referral warm in worker referral 2020 021 [facility], [address] [place], [address], 08:36:52 Procedures None recorded. Surgeries None recorded. Imaging None recorded. Medication Orders cephalexin 500 mg capsule [address] [facility], [address] [place], [address], 17:08:26 Patient TargetsNo targets recorded. Patient Instructions Encounter Date Encounter Id Patient Instructions Last Modified By Organization Details Last Modified Time 11/28/2021 [id number] post-traumatic stress disorder (PTSD): care instructions [facility] Not available 11/28/2021 17:13:36 pump and meter [...] months. rjessee Not available 11/28/2021 17:32:11 02/27/2022 [id number] medical record request* - please send me [...] months. rjessee Not available 02/27/2022 17:24:47 05/01/2023 [id number] post-traumatic stress disorder (PTSD): care instructions rjessee [...] weeks. rjessee Not available 05/01/2023 12:00:22 03/29/2024 [id number] post-traumatic stress disorder (PTSD): care instructions rjessee [...] Not available 03/29/2024 09:09:28 Reason for Referral [employer] Referral for Cell ulitis of foot Referring Physician: Laura Dumont, Family Medicine, Encounter Date: 05/24/2021 Results Created Date Observation Date Name Description Value Unit Range Abnormal Flag Note LastModifiedBy Organization Detail LastModifiedTime 11/28/19 22 11/29/2021 TSH+F REE T4 TSH 0.010 uIU/m L 0.450- 4.500 below low normal Not Available [facility] ([facility]) [address] [facility] [facility], [place], [address], 12/01/2021 06:15:46 11/28/19 22 11/29/2021 TSH+F REE T4 T4,free(dire ct) 1.99 NG/dL 0.82-1 .77 above high normal Not Available [facility] ([facility]) [address] [place], [address], 12/01/2021 06:15:46 11/28/19 22 11/29/2021 COMP. METAB OLIC PANEL (14) glucose 133 mg/dL 65-99 above high normal Not Available [facility] ([facility]) [address] [place], [address], 12/01/2021 06:15:47 11/28/19 22 11/29/2021 COMP. METAB OLIC PANEL (14) BUN 6 mg/dL 6-20 Not Available [facility] ([facility]) [address] [place], [address], 12/01/2021 06:15:47 11/28/19 22 11/29/2021 COMP. METAB OLIC PANEL (14) creatinine 0.69 mg/dL 0.57-1 .00 Not Available [facility] ([facility]) [address] [place], [address], 12/01/2021 06:15:47 11/28/19 22 11/29/2021 COMP. METAB OLIC PANEL (14) eGFR if nonafricn AM 112 mL/mi n/1.7 3 >59 Not Available [facility] ([facility]) [address] [place], [address], 12/01/2021 06:15:47 11/28/19 22 11/29/2021 COMP. METAB [...] a race varia ble. Not Available [facility] ([facility]) [address] [place], [address], 12/01/2021 06:15:47 11/28/19 22 11/29/2021 COMP. METAB OLIC PANEL (14) BUN/creatini ne ratio 9 9-23 Not Available [facility] ([facility]) [address] [place], [address], 12/01/2021 06:15:47 11/28/19 22 11/29/2021 COMP. METAB OLIC PANEL (14) sodium 139 mmol/ L 134-14 4 Not Available [facility] ([facility]) [address] [place], [address], 12/01/2021 06:15:47 11/28/19 22 11/29/2021 COMP. METAB OLIC PANEL (14) potassium 4.2 mmol/ L 3.5-5. 2 Not Available [facility] ([facility]) [address] [place], [address], 12/01/2021 06:15:47 11/28/19 22 11/29/2021 COMP. METAB OLIC PANEL (14) chloride 102 mmol/ L 96-106 Not Available [facility] ([facility]) [address] [place], [address], 12/01/2021 06:15:47 11/28/19 22 11/29/2021 COMP. METAB OLIC PANEL (14) carbon dioxide, total 24 mmol/ L 20-29 Not Available [facility] ([facility]) [address] [place], [address], 12/01/2021 06:15:47 11/28/19 22 11/29/2021 COMP. METAB OLIC PANEL (14) calcium 9.0 mg/dL 8.7-10 .2 Not Available [facility] ([facility]) [address], [place], [address], 12/01/2021 06:15:47 11/28/19 22 11/29/2021 COMP. METAB OLIC PANEL (14) protein, total 7.5 g/dL 6.0-8. 5 Not Available [facility] ([facility]) [address], [place], [address], 12/01/2021 06:15:47 11/28/19 22 11/29/2021 COMP. METAB OLIC PANEL (14) albumin 4.3 g/dL 3.8-4. 8 Not Available [facility] ([facility]) [address], [place], [address], 12/01/2021 06:15:47 11/28/19 22 11/29/2021 COMP. METAB OLIC PANEL (14) globulin, total 3.2 g/dL 1.5-4. 5 Not Available [facility] ([facility]) [address] [facility] [place], [address], 12/01/2021 06:15:47 11/28/19 22 11/29/2021 COMP. METAB OLIC PANEL (14) A/G ratio 1.3 1.2-2. 2 Not Available [facility] ([facility]) [address] [facility] [place], [address], 12/01/2021 06:15:47 11/28/19 22 11/29/2021 COMP. METAB OLIC PANEL (14) bilirubin, total <0.2 mg/dL 0.0-1. 2 Not Available [facility] ([facility]) [address] [facility] [place], [address], 12/01/2021 06:15:47 11/28/19 22 11/29/2021 COMP. METAB OLIC PANEL (14) alkaline phosphatase 65 IU/L 44-121 Ple ase note refer ence inter magdiel christopher e Not Available [facility] ([facility]) [address], [place], [address], 12/01/2021 06:15:47 11/28/19 22 11/29/2021 COMP. METAB OLIC PANEL (14) AST (SGOT) 17 IU/L 0-40 Not Available [facility] ([facility]) [address] [facility] [place], [address], 12/01/2021 06:15:47 11/28/19 22 11/29/2021 COMP. METAB OLIC PANEL (14) ALT (SGPT) 12 IU/L 0-32 Not Available [facility] ([facility]) [address], [place], [address], 12/01/2021 06:15:47 11/28/19 22 11/29/2021 LDL VINCENT STERO L (DIRE CT) LDL chol. (direct) 85 mg/dL 0-99 Not Available [facility] ([facility]) [address], [place], [address], 12/01/2021 06:15:49 11/28/19 22 11/29/2021 LDL VINCENT STERO L (DIRE CT) comment: OILER AND GREASER Not Available [facility] ([facility]) [address], [place], [address], 12/01/2021 06:15:49 11/28/19 22 12/01/2021 VITAM IN [...] um and D. Catherine bhardwaj DC: [employer] [facility] [employer] . 2. Marline samaniego MF, Bronwyn benítez [place], Bisch off-F errar i PICKENS, et al. Evalu ation , treat ment, and preve ntion of vitam in D defic iency : an Endoc rine Socie ty clini ra pract ice guide line. JCEM. 2010; 96(7) :1911 -30. Not Available [facility] ([facility]) [address], [place], [address], 12/01/2021 06:15:50 11/28/19 22 11/29/2021 TRIIO DOTHY MAYOC E (T3), FREE triiodothyro nine (T3), free 3.1 pg/mL 2.0-4. 4 Not Available [facility] ([facility]) [address], [place], [address], 12/01/2021 06:15:51 11/28/19 22 11/28/2021 HbA1c (hemo globi n A1c), blood HbA1C 8.3 % Not Available [address] , [place], [address], 11/28/2021 17:07:11 11/28/19 22 11/28/2021 micro album in/cr eatin ine, mass ratio , urine Microalbumin 10 mg/L Not Available [address] , [place], [address], 11/28/2021 17:08:27 11/28/19 22 11/28/2021 micro album in/cr eatin ine, mass ratio , urine Creatinine 50 mg/dL Not Available [address] , [place], [address], 11/28/2021 17:08:27 11/28/19 22 11/28/2021 micro album in/cr eatin ine, mass ratio , urine Ratio <30 mg/g normal Not Available [address] , [place], [address], 11/28/2021 17:08:27 11/28/19 22 11/28/2021 gluco se, finge rstic k, blood Blood Glucose: mg/dl 140 Not Available [address] , [place], [address], 11/28/2021 17:07:03 02/28/20 22 02/27/2022 HbA1c (hemo globi n A1c), blood HbA1C 8.3 % Not Available [address] , [place], [address], 02/27/2022 10:15:08 02/28/20 22 02/27/2022 gluco se, finge rstic k, blood Blood Glucose: mg/dl 316 Not Available [address] , [place], [address], 02/27/2022 10:15:07 05/01/20 23 05/02/2023 TSH+F REE T4 TSH 2.750 uIU/m L 0.450- 4.500 Not Available [facility] ([facility]) [address] [place], [address], 05/02/2023 07:15:23 05/01/20 23 05/02/2023 TSH+F REE T4 T4,free(dire ct) 0.94 NG/dL 0.82-1 .77 Not Available [facility] ([facility]) [address] [place], [address], 05/02/2023 07:15:23 05/01/20 23 05/02/2023 COMP. METAB OLIC PANEL (14) glucose 141 mg/dL 70-99 above high normal Not Available [facility] ([facility]) [address] [place], [address], 05/02/2023 07:15:23 05/01/20 23 05/02/2023 COMP. METAB OLIC PANEL (14) BUN 9 mg/dL 6-20 Not Available [facility] ([facility]) [address] [place], [address], 05/02/2023 07:15:23 05/01/20 23 05/02/2023 COMP. METAB OLIC PANEL (14) creatinine 0.74 mg/dL 0.57-1 .00 Not Available [facility] ([facility]) [address] [facility] [place], [address], 05/02/2023 07:15:23 05/01/20 23 05/02/2023 COMP. METAB OLIC PANEL (14) eGFR 105 mL/mi n/1.7 3 >59 Not Available [facility] ([facility]) [address] [place], [address], 05/02/2023 07:15:23 05/01/20 23 05/02/2023 COMP. METAB OLIC PANEL (14) BUN/creatini ne ratio 12 9-23 Not Available [facility] ([facility]) [address] [place], [address], 05/02/2023 07:15:23 05/01/20 23 05/02/2023 COMP. METAB OLIC PANEL (14) sodium 138 mmol/ L 134-14 4 Not Available [facility] ([facility]) [address] [place], [address], 05/02/2023 07:15:23 05/01/20 23 05/02/2023 COMP. METAB OLIC PANEL (14) potassium 5.0 mmol/ L 3.5-5. 2 Not Available [facility] ([facility]) [address] [place], [address], 05/02/2023 07:15:23 05/01/20 23 05/02/2023 COMP. METAB OLIC PANEL (14) chloride 104 mmol/ L 96-106 Not Available [facility] ([facility]) [address] [place], [address], 05/02/2023 07:15:23 05/01/20 23 05/02/2023 COMP. METAB OLIC PANEL (14) carbon dioxide, total 21 mmol/ L 20-29 Not Available [facility] ([facility]) [address] [place], [address], 05/02/2023 07:15:23 05/01/20 23 05/02/2023 COMP. METAB OLIC PANEL (14) calcium 9.3 mg/dL 8.7-10 .2 Not Available [facility] ([facility]) [address] [place], [address], 05/02/2023 07:15:23 05/01/20 23 05/02/2023 COMP. METAB OLIC PANEL (14) protein, total 7.4 g/dL 6.0-8. 5 Not Available [facility] ([facility]) [address] [place], [address], 05/02/2023 07:15:23 05/01/20 23 05/02/2023 COMP. METAB OLIC PANEL (14) albumin 4.2 g/dL 3.8-4. 8 Not Available [facility] ([facility]) [address] [place], [address], 05/02/2023 07:15:23 05/01/20 23 05/02/2023 COMP. METAB OLIC PANEL (14) globulin, total 3.2 g/dL 1.5-4. 5 Not Available [facility] ([facility]) [address] [place], [address], 05/02/2023 07:15:23 05/01/20 23 05/02/2023 COMP. METAB OLIC PANEL (14) A/G ratio 1.3 1.2-2. 2 Not Available [facility] ([facility]) [address] [facility] [place], [address], 05/02/2023 07:15:23 05/01/20 23 05/02/2023 COMP. METAB OLIC PANEL (14) bilirubin, total 0.2 mg/dL 0.0-1. 2 Not Available [facility] ([facility]) [address] [facility] [place], [address], 05/02/2023 07:15:23 05/01/20 23 05/02/2023 COMP. METAB OLIC PANEL (14) alkaline phosphatase 73 IU/L 44-121 Not Available [facility] ([facility]) [address] [place], [address], 05/02/2023 07:15:23 05/01/20 23 05/02/2023 COMP. METAB OLIC PANEL (14) AST (SGOT) 22 IU/L 0-40 Not Available [facility] ([facility]) [address] [place], [address], 05/02/2023 07:15:23 05/01/20 23 05/02/2023 COMP. METAB OLIC PANEL (14) ALT (SGPT) 14 IU/L 0-32 Not Available [facility] ([facility]) [address] [place], [address], 05/02/2023 07:15:23 05/01/20 23 05/02/2023 LIPID PANEL cholesterol, total 183 mg/dL 100-19 9 Not Available [facility] ([facility]) [address] [place], [address], 05/02/2023 07:15:24 05/01/20 23 05/02/2023 LIPID PANEL triglyceride s 53 mg/dL 0-149 Not Available [facility] ([facility]) [address] [place], [address], 05/02/2023 07:15:24 05/01/20 23 05/02/2023 LIPID PANEL HDL cholesterol 71 mg/dL >39 Not Available [facility] ([facility]) [address] [place], [address], 05/02/2023 07:15:24 05/01/20 23 05/02/2023 LIPID PANEL VLDL cholesterol ra 10 mg/dL 5-40 Not Available [facility] ([facility]) [address] [place], [address], 05/02/2023 07:15:24 05/01/20 23 05/02/2023 LIPID PANEL LDL chol calc ([facility]) 102 mg/dL 0-99 above high normal Not Available [facility] ([facility]) [address] [place], [address], 05/02/2023 07:15:24 05/01/20 23 05/02/2023 LIPID PANEL comment: OILER AND GREASER Not Available [facility] ([facility]) [address] [place], [address], 05/02/2023 07:15:24 05/01/20 23 05/02/2023 VITAM IN [...] um and D. Catherine bhardwaj DC: [facility] . 2. Marline samaniego MF, Bronwyn benítez [place], Lynn off-F oliver i PICKENS, et al. Evalu ation , treat ment, and preve ntion of vitam in D defic iency : an Endoc rine Socie ty clini ra pract ice guide line. JCEM. 2010; 96(7) :1911 -30. Not Available [facility] ([facility]) [address] [facility], [place], [address], 05/02/2023 07:15:25 05/01/20 23 05/02/2023 TRIIO DOTHY MAYCO E (T3), FREE triiodothyro nine (T3), free 1.8 pg/mL 2.0-4. 4 below low normal Not Available [facility] ([facility]) [address] [facility], [place], [address], 05/02/2023 07:15:25 05/01/20 23 05/01/2023 HbA1c (hemo globi n A1c), blood HbA1C 11.6 % Not Available [address] , [place], [address], 05/01/2023 09:58:00 05/01/20 23 05/01/2023 gluco se, finge rstic k, blood Blood Glucose: mg/dl 183 Not Available [address] , [place], [address], 05/01/2023 09:58:00 05/01/20 23 05/01/2023 micro album in/cr eatin ine, mass ratio , urine Microalbumin 10 mg/L Not Available [address] , [place], [address], 05/01/2023 11:44:25 05/01/20 23 05/01/2023 micro album in/cr eatin ine, mass ratio , urine Creatinine 50 mg/dL Not Available [address] , [place], [address], 05/01/2023 11:44:25 05/01/20 23 05/01/2023 micro album in/cr eatin ine, mass ratio , urine Ratio <30 mg/g normal Not Available [address] , [place], [address], 05/01/2023 11:44:25 03/29/20 24 03/30/2024 TSH+F REE T4 TSH 0.017 uIU/m L 0.450- 4.500 below low normal Not Available [facility] ([facility]) [address] [place], [address], 03/30/2024 08:29:28 03/29/20 24 03/30/2024 TSH+F REE T4 T4,free(dire ct) 1.76 NG/dL 0.82-1 .77 Not Available [facility] ([facility]) [address] [place], [address], 03/30/2024 08:29:28 03/29/20 24 03/30/2024 COMP. METAB OLIC PANEL (14) glucose 143 mg/dL 70-99 above high normal Not Available [facility] ([facility]) [address] [place], [address], 03/30/2024 08:29:29 03/29/20 24 03/30/2024 COMP. METAB OLIC PANEL (14) BUN 16 mg/dL 6-24 Not Available [facility] ([facility]) [address] [place], [address], 03/30/2024 08:29:29 03/29/20 24 03/30/2024 COMP. METAB OLIC PANEL (14) creatinine 0.71 mg/dL 0.57-1 .00 Not Available [facility] ([facility]) [address], [place], [address], 03/30/2024 08:29:29 03/29/20 24 03/30/2024 COMP. METAB OLIC PANEL (14) eGFR 110 mL/mi n/1.7 3 >59 Not Available [facility] ([facility]) [address] [place], [address], 03/30/2024 08:29:29 03/29/20 24 03/30/2024 COMP. METAB OLIC PANEL (14) BUN/creatini ne ratio 23 9-23 Not Available [facility] ([facility]) [address] [place], [address], 03/30/2024 08:29:29 03/29/20 24 03/30/2024 COMP. METAB OLIC PANEL (14) sodium 139 mmol/ L 134-14 4 Not Available [facility] ([facility]) [address] [place], [address], 03/30/2024 08:29:29 03/29/20 24 03/30/2024 COMP. METAB OLIC PANEL (14) potassium 4.9 mmol/ L 3.5-5. 2 Not Available [facility] ([facility]) [address] [place], [address], 03/30/2024 08:29:29 03/29/20 24 03/30/2024 COMP. METAB OLIC PANEL (14) chloride 105 mmol/ L 96-106 Not Available [facility] ([facility]) [address] [place], [address], 03/30/2024 08:29:29 03/29/20 24 03/30/2024 COMP. METAB OLIC PANEL (14) carbon dioxide, total 22 mmol/ L 20-29 Not Available [facility] ([facility]) [address] [place], [address], 03/30/2024 08:29:29 03/29/20 24 03/30/2024 COMP. METAB OLIC PANEL (14) calcium 9.0 mg/dL 8.7-10 .2 Not Available [facility] ([facility]) [address] [facility], [place], [address], 03/30/2024 08:29:29 03/29/20 24 03/30/2024 COMP. METAB OLIC PANEL (14) protein, total 7.0 g/dL 6.0-8. 5 Not Available [facility] ([facility]) [address] [facility] [place], [address], 03/30/2024 08:29:29 03/29/20 24 03/30/2024 COMP. METAB OLIC PANEL (14) albumin 4.1 g/dL 3.9-4. 9 Not Available [facility] ([facility]) [address] [facility] [place], [address], 03/30/2024 08:29:29 03/29/20 24 03/30/2024 COMP. METAB OLIC PANEL (14) globulin, total 2.9 g/dL 1.5-4. 5 Not Available [facility] ([facility]) [address] [facility] [place], [address], 03/30/2024 08:29:29 03/29/20 24 03/30/2024 COMP. METAB OLIC PANEL (14) A/G ratio 1.4 1.2-2. 2 Not Available [facility] ([facility]) [address] [facility], [place], [address], 03/30/2024 08:29:29 03/29/20 24 03/30/2024 COMP. METAB OLIC PANEL (14) bilirubin, total <0.2 mg/dL 0.0-1. 2 Not Available [facility] ([facility]) [address] [facility] [place], [address], 03/30/2024 08:29:29 03/29/20 24 03/30/2024 COMP. METAB OLIC PANEL (14) alkaline phosphatase 66 IU/L 44-121 Not Available [facility] ([facility]) [address] [facility] [place], [address], 03/30/2024 08:29:29 03/29/20 24 03/30/2024 COMP. METAB OLIC PANEL (14) AST (SGOT) 24 IU/L 0-40 Not Available [facility] ([facility]) [address] [place], [address], 03/30/2024 08:29:29 03/29/20 24 03/30/2024 COMP. METAB OLIC PANEL (14) ALT (SGPT) 15 IU/L 0-32 Not Available [facility] ([facility]) [address] [facility] [place], [address], 03/30/2024 08:29:29 03/29/20 24 03/30/2024 LIPID PANEL cholesterol, total 160 mg/dL 100-19 9 Not Available [facility] ([facility]) [address] [facility] [place], [address], 03/30/2024 08:29:30 03/29/20 24 03/30/2024 LIPID PANEL triglyceride s 69 mg/dL 0-149 Not Available [facility] ([facility]) [address] [facility] [place], [address], 03/30/2024 08:29:30 03/29/20 24 03/30/2024 LIPID PANEL HDL cholesterol 71 mg/dL >39 Not Available [facility] ([facility]) [address] [facility] [place], [address], 03/30/2024 08:29:30 03/29/20 24 03/30/2024 LIPID PANEL VLDL cholesterol ra 13 mg/dL 5-40 Not Available [facility] ([facility]) [address] [facility], [place], [address], 03/30/2024 08:29:30 03/29/20 24 03/30/2024 LIPID PANEL LDL chol calc ([facility]) 76 mg/dL 0-99 Not Available [facility] ([facility]) [address] [facility], [place], [address], 03/30/2024 08:29:30 03/29/20 24 03/30/2024 LIPID PANEL comment: OILER AND GREASER Not Available [facility] ([facility]) [address] [facility], [place], [address], 03/30/2024 08:29:30 03/29/20 24 03/30/2024 VITAM IN [...] um and D. Catherine bhardwaj DC: The [facility] . 2. Marline samaniego MF, Bronwyn benítez [place], Lynn off-F [place] i PICKENS, et al. Evalu ation , treat ment, and preve ntion of vitam in D defic iency : an Endoc rine Socie ty clini ra pract ice guide line. JCEM. 2010; 96(7) :1911 -30. Not Available [facility] ([facility]) [address] [facility], [place], [address], 03/30/2024 08:29:31 03/29/20 24 03/30/2024 TRIIO DOTHY MAYCO E (T3), FREE triiodothyro nine (T3), free 3.0 pg/mL 2.0-4. 4 Not Available [facility] ([facility]) [address], [place], [address], 03/30/2024 08:29:32 03/29/20 24 03/29/2024 HbA1c (hemo globi n A1c), blood HbA1C 9.1 % Not Available [address] , [place], [address], 03/28/2024 18:30:33 03/29/20 24 03/29/2024 gluco se, finge rsmarina k, blood Blood Glucose: mg/dl 183 Not Available [address] , [place], [address], 03/28/2024 18:30:33 Result Notes None recorded. Problems Name Problem SNOMED Code Status Onset Date Resolution Date Notes Provider Name and Address Organization Details Recorded Time Type 1 diabetes mellitus 39443010 Active Natasha Jenkins null, [place] - [facility] 7 15:27:17 Hypothyroid ism 62942987 Active Natasha Jenkins null, [place] - [facility] 15:27:27 COVID-19 804930815 Active 2019 Germaine wilks MD [address], [place], [address], [place] - [facility] 0 16:11:07 Acquired hypothyroid ism 246838995 Active 2020 Ileana Hewitt APRN [address], [place], [address], [place] - [facility] 1 18:09:51 Mixed hyperlipide lucretia 008087710 Active 2020 Ileana Hewitt APRN [address], [place], [address], [place] - [facility] 1 18:09:53 Vitamin D deficiency 47981415 Active 2020 Ileana Hewitt, DOCUMENT MANAGEMENT ANALYST [address], [place], [address], [place] [facility] 18:09:54 Insulin pump present 697384848 Active 2020 Ileana Hewitt, DOCUMENT MANAGEMENT ANALYST [address], [place], [address], [place] [facility] 18:10:04 Hyperglycem ia due to type 1 diabetes mellitus 2138301779861 01 Active 2020 Ileana Hewitt, DOCUMENT MANAGEMENT ANALYST [address], [place], [address], [place] [facility] 18:10:12 Peripheral 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 Procedures Surgical History Date Name Laterality Status Provider Name and Address Organization Details Recorded Time 03/29/20 24 A1C level 9.1 and above completed Natasha [employer] [facility] [employer] - [facility] 03/29/2024 09:00:00 05/01/20 23 Negative Microalbumin completed Natasha [employer] [facility] [employer] - [facility] 05/01/2023 11:44:17 05/01/20 23 A1C level 9.1 and above completed Natasha [employer] [employer] - [facility] 05/01/2023 11:46:21 02/28/20 22 A1C level 8.0 to 9.0 completed Natasha [facility] [employer] - [facility] 02/27/2022 17:12:02 11/28/19 22 Negative Microalbumin completed Natasha [facility] [employer] - [facility] 11/28/2021 17:06:47 11/28/19 22 A1C level 8.0 to 9.0 completed Natasha [facility] [employer] - [facility] 11/28/2021 17:11:27 01/18/20 21 Diastolic [...] Name and Address Organization Details Recorded Time 39938 Substance with sulfonami de structure and antibacte rial mechanism of action (substanc e) medicatio n Not available Not available Not available 09/16/2017 92057 [id number] SNOMED rash Natasha Jenkins null, [place] - [facility] 15:19:31 Medications Name Sig Start Date Stop Date Status Note LastModified by Organization Details LastModified Time Prescriptio n - Change 01/17 completed Not Available Not Available Not Available Prescriptio n - Renewal 03/29 completed Not [...] Available Not Available Dexcom G6 Sensor device change every 10 days active Not Available Not Available No t Available Dexcom G6 Polls Or Surveys Interviewer change 1 q yr active Not Available [...] weight Body temperature Heart rate Oxygen saturation Respiratory rate Pain severity - 0-10 verbal numeric rating [Score] - Reported Systolic And Diastolic Provider Name and Address Organization Details Last Updated DateTime 2 172.72 cm 26.9 kg/m2 73421.5 5 g 98 [degF] 74 /min 99 % 16 /min 0 122/60 mm[Hg] NatashaElke Jenkins [place] - [facility] 2 17:04:12 Date Recorded Body height Body mass index (BMI) Body weight Body temperature Heart rate Oxygen saturation Respiratory rate Pain severity - 0-10 verbal numeric rating [Score] - Reported Systolic And Diastolic Provider Name and Address Organization Details Last Updated DateTime 2 172.72 cm 26.3 kg/m2 42144.8 8 g 98.4 [degF] 71 /min 97 % 16 /min 0 118/60 mm[Hg] NatashaElke Jenkins [place] - [facility] 2 17:08:09 Date Recorded Body height Body mass index (BMI) Body weight Body temperature Heart rate Oxygen saturation Respiratory rate Pain severity - 0-10 verbal numeric rating [Score] - Reported Systolic And Diastolic Provider Name and Address Organization Details Last Updated DateTime 4 172.72 cm 26.5 kg/m2 68993.0 7 g 98.3 [degF] 84 /min 99 % 16 /min 0 114/70 mm[Hg] NatashaElke Jenkins [place] - [facility] 4 08:56:11 Date Recorded Body height Body mass index (BMI) Body weight Body temperature Heart rate Oxygen saturation Respiratory rate Pain severity - 0-10 verbal numeric rating [Score] - Reported Systolic And Diastolic Provider Name and Address Organization Details Last Updated DateTime 3 172.72 cm 25.8 kg/m2 15286.9 1 g 98.4 [degF] 74 /min 99 % 16 /min 0 118/80 mm[Hg] Natasha Jenkins [facility] 3 11:41:49 Date Recorded Body height Body mass index (BMI) Body weight Body temperature Heart rate Oxygen saturation Respiratory rate Pain severity - 0-10 verbal numeric rating [Score] - Reported Systolic And Diastolic Provider Name and Address Organization Details Last Updated DateTime 1 172.72 cm 26.7 kg/m2 39469.4 6 g 97.7 [degF] 70 /min 99 % 16 /min 0 112/64 mm[Hg] Oxana Becker [place] - [facility] 1 11:13:01 Social History Question Answer Notes LastModified by Organizat ion Details LastModified Time Tobacco Smoking Status Never Smoker Natasha Jenkins null, [place] - [facility] 09/16/2017 15:30:09 Able To [...] available 06/2021 11:13:27 Medical History Condition Response Diabetes Y Hypothyroidism Y Gynecological History Statement/Question Response Date of Last Pap Smear Date of LMP 02/27/2024 Obstetrics History GPAL:G 4 P 0 0 0 0 Immunizations Vaccine Type Date Status Note Provider Nam e and Address Organization Details Recorded Time Influenza, split virus, quadrivalent, preservative 7 completed Not Available [facility] 12/04/2019 03:54:41 Influenza, split virus, quadrivalent, preservative 8 completed JONEL [facility] - [facility] 09/15/2018 17:34:49 Influenza, split virus, quadrivalent, preservative 9 completed Not Available [facility] 12/04/2019 03:56:14 Past Encounters Encounter ID Performer Location Encounter Start Date Encounter Closed Date Diagnosis/Indication Diagnosis SNOMED-CT Code Diagnosis ICD10 Code Diagnosis IMO Codes Diagnosis Note [id number] Ileana Hewitt APRN [address] [place] [address] 09/16/2017 15:13:22 09/16/2017 16:40:16 Administration of influenza vaccine 89521860 Z23 Uncontroll ed type 1 diabetes mellitus 539481227 E10.65 Acquired hypothyroidism 169829904 E03.9 Mixed hyperlipidemia 267 416534 E78.2 Vitamin D deficiency 347 35810 E55.9 [id number] LOLLY KONG PHARMD [address] [place] [address] 10/02/2017 16:32:40 10/02/2017 17:03:00 [id number] LOLLY KONG PHARMD [address] [place] [address] 10/07/2017 17:00:21 10/07/2017 18:03:36 [id number] Ileana Hewitt APRN [address] [place] [address] 12/10/2017 16:31:07 12/10/2017 17:42:14 Uncontrolled type 1 diabetes mellitus 503720984 E10.65 Acquired hypothyroidism 865873257 E03.9 Mixed hyperlipidemia 267 635506 E78.2 Vitamin D deficiency 347 97214 E55.9 [id number] Ileana Hewitt [address] [place] [address] 06/15/2018 15:39:16 06/15/2018 16:55:08 Uncontrolled type 1 diabetes mellitus 883744464 E10.65 Acquired hypothyroidism 121887001 E03.9 Mixed hyperlipidemia 267 895686 E78.2 Vitamin D deficiency 347 99834 E55.9 Renewal of prescription 636905811 Z76.0 [id number] Ileana Hewitt [address] [place] [address] 09/15/2018 17:17:11 09/15/2018 18:02:43 Uncontrolled type 1 diabetes mellitus 961170831 E10.65 Acquired hypothyroidism 839613657 E03.9 Mixed hyperlipidemia 267 708816 E78.2 Vitamin D deficiency 347 21777 E55.9 [id number] Ileana Hewitt [address] [place] [address] 11/04/2018 14:46:26 11/04/2018 15:42:32 Uncontrolled type 1 diabetes mellitus 226346957 E10.65 Acquired hypothyroidism 557774445 E03.9 Mixed hyperlipidemia 267 588198 E78.2 Vitamin D deficiency 347 98170 E55.9 Body mass index 25-29 - overweight 681615042 Z68.26 Insulin pump present 450 215034 Z96.41 Medical eq uipment or device education 961569022 Z46.81 [id number] Ileana Hewitt [address] [place] [address] 08/24/2019 16:21:34 08/24/2019 17:05:51 Type 1 diabetes mellitus 52498723 E10.65 Acute urin rashida tract infection 871667221 N39.0 Uncontroll ed type 1 diabetes mellitus 369391152 E10.65 Acquired hypothyroidism 580763117 E03.9 Mixed hyperlipidemia 267 030681 E78.2 Vitamin D deficiency 347 50246 E55.9 Body mass index 25-29 - overweight 855585364 Z68.25 Insulin pump present 450 328463 Z96.41 Medical eq uipment or device education 638038385 Z46.81 [id number] Ileana Hewitt APRN [place] [id number] [facility] [place] [address] 10/06/2019 17:03:53 10/06/2019 17:52:47 Administration of influenza vaccine 80699018 Z23 Acquired hypothyroidism 401311641 E03.9 Mixed hyperlipidemia 267 432020 E78.2 Vitamin D deficiency 347 27743 E55.9 Body mass index 25-29 - overweight 317274128 Z68.25 Insulin pump present 450 306988 Z96.41 Medical eq uipment or device education 701425152 Z46.81 Hyperglyce lucretia due to type 1 diabetes mellitus 8682165506 42314 E10.65 Pain of ri ght shoulder joint 2730264707 1740219 M25.511 Peripheral neuropathy due to type 1 diabetes mellitus 5877707372 9104 E10.40 [id number] Germaine fontanez MD [address] [address] 10/02/2020 15:44:33 10/02/2020 16:53:22 Headache 97878421 R51.9 COVID-19 269636649 U07.1 quarantine instructio ns given to patient, patient voiced understand ing.pt instructed to increase fluid intake to decrease chances of dehydratio n, tylenol or ibuprofen for fever or body aches, if any sob or concerning symptoms please call the office [id number] Laura Dumont PA-C [address] [address] 11/27/2020 15:50:36 11/27/2020 16:45:34 Cough 98636668 R05 [id number] Ileana Hewitt APRN [place] [id number] [facility] [place] [address] 01/17/2021 15:06:39 01/17/2021 15:55:39 Mixed hyperlipidemia 117833599 E78.2 Vitamin D deficiency 347 25149 E55.9 Body mass index 25-29 - overweight 879313952 Z68.25 Insulin pump present 450 438345 Z96.41 Hyperglyce lucretia due to type 1 diabetes mellitus 2681118057 70596 E10.65 Peripheral neuropathy due to type 1 diabetes mellitus 1737779930 9104 E10.40 Hepatitis C screening 41 3881166 Z11.59 Postoperat indra hypothyroidism 88017575 E89.0 Screening for malignant neoplasm of cervix 099051004 Z12.4 Patient me dical record not available 311704683 Z76.89 Post-traum atic stress disorder 82659329 F43.10 [id number] Ileana Hewitt [address] [place] [address] 02/28/2021 11:24:16 02/28/2021 12:58:54 Hyperglycemia due to type 1 diabetes mellitus 1014539492 69469 E10.65 Mixed hyperlipidemia 267 687089 E78.2 Vitamin D deficiency 347 27618 E55.9 Body mass index 25-29 - overweight 134721868 Z68.25 Insulin pump present 450 932667 Z96.41 Peripheral neuropathy due to type 1 diabetes mellitus 1917881253 9104 E10.40 Postoperat indra hypothyroidism 92750258 E89.0 Post-traum atic stress disorder 13957092 F43.10 [id number] Laura Dumont PA-C [facility] [address] [facility] [address] [place] [address] 05/24/2021 11:05:25 05/24/2021 11:46:00 Cellulitis of foot 695740584 L03.333 [id number] Ileana Hewitt [address] [place] [address] 11/28/2021 16:26:11 11/28/2021 17:38:09 Hyperglycemia due to type 1 diabetes mellitus 6144090671 13534 E10.65 Mixed hyperlipidemia 267 875867 E78.2 Vitamin D deficiency 347 99196 E55.9 Body mass index 25-29 - overweight 741899532 Z68.25 Insulin pump present 450 462866 Z96.41 Peripheral neuropathy due to type 1 diabetes mellitus 5385328846 9104 E10.40 Postoperat indra hypothyroidism 54255720 E89.0 Post-traum atic stress disorder 57882522 F43.10 [id number] Ileana Hewitt [address] [place] [address] 02/27/2022 16:59:26 02/27/2022 17:25:49 Hyperglycemia due to type 1 diabetes mellitus 6784756037 15293 E10.65 Peripheral neuropathy due to type 1 diabetes mellitus 6023351282 9104 E10.40 Insulin pump present 450 703172 Z96.41 Mixed hyperlipidemia 267 162922 E78.2 Vitamin D deficiency 347 99603 E55.9 Body mass index 25-29 - overweight 414375762 Z68.25 Postoperat indra hypothyroidism 72085464 E89.0 Post-traum atic stress disorder 48514165 F43.10 Patient tx dical record not available 326042575 Z76.89 [id number] Ileana Hewitt [address] [place] [address] 05/01/2023 11:13:38 05/01/2023 12:06:04 Hyperglycemia due to type 1 diabetes mellitus 3845065658 35115 E10.65 Peripheral neuropathy due to type 1 diabetes mellitus 5050075894 9104 E10.40 Insulin pump present 450 898721 Z96.41 Mixed hyperlipidemia 267 332667 E78.2 Vitamin D deficiency 347 00578 E55.9 Body mass index 25-29 - overweight 568691140 Z68.25 Postoperat indra hypothyroidism 26604627 E89.0 Post-traum atic stress disorder 24901500 F43.10 [id number] Ileana Hewitt [address] [place] [address] 03/29/2024 08:37:01 03/29/2024 09:12:53 Hyperglycemia due to type 1 diabetes mellitus 5013475038 73172 E10.65 Peripheral neuropathy due to type 1 diabetes mellitus 3702584779 9104 E10.40 Insulin pump present 450 039721 Z96.41 Mixed hyperlipidemia 267 567396 E78.2 Vitamin D deficiency 347 70437 E55.9 Body mass index 25-29 - overweight 273700624 Z68.26 Postoperat indra hypothyroidism 20029097 E89.0 Post-traum atic stress disorder 78115592 F43.10 Health Concerns Section Related Observation LastModified by Organization Detai ls LastModified Time None Recorded Concern Status LastModified by Organization Details LastModified Time None Recorded Advance Directives Directive N: Payers Insurance Date Sequence Insurance Name Policy Number Policy Lewis Covered Member ID Lewis Member ID Guarantor Name 07/18/2025 1 [facility] [facility] [id number] Sabrina Webb [id number] Sabrina Webb Notes Date Note Type Note Provider [...] fever. Laura Dumont PA-C [address], [place], [address], [place] - [facility] 05/24/2021 12:11:03 11/28/2021 text/html [...] second course of antibiotics for this. Ileana Hewitt, DOCUMENT MANAGEMENT ANALYST [address], [place], [address], [place] - [facility] 11/28/2021 17:37:35 02/27/2022 text/html Sabrina [...] daily. No symptoms of over replacement. Ileana Hewitt, DOCUMENT MANAGEMENT ANALYST [address], [place], [address], [employer] - [facility] 02/27/2022 17:25:25 05/01/2023 text/html Sabrina [...] her Synthroid X 5 days. Ileana Hewitt, DOCUMENT MANAGEMENT ANALYST [address], [place], [address], [facility] - [facility] 05/01/2023 12:01:58 03/29/2024 text/html Sabrina [...] Chronic issues reviewed and stable. Ileana Hewitt, DOCUMENT MANAGEMENT ANALYST [address], [place], [address], [facility] - [facility] 03/29/2024 09:11:06 OBGyn Episode No OBEpisode recorded.
== END 2025-10-21 23:59 | disposition home or self-care (01) ==
LOC: LAB.DROPOF 10-23 14:03
PROVIDERS: PCP Nurse Practitioner Family; Visit Provider Nurse Practitioner
DX: N39.0 Urinary tract infection, site not specified (principal)
CPT/HCPCS: 87086; 87088; 87186